=== PATIENT | male | born 1970 | race Caucasian/White ===

== ENCOUNTER 2023-02-07 08:51 | Inpatient (IN) ==
--- NOTE | 2023-02-07 09:04 | Emergency Department Note ---
Impression & Plan Encephalopathy acute, Elevated liver function tests, Acute urinary retention, Hyponatremia ED Provider Note Name: BENOIT BUNCH Age: 52 Sex: Male Arrives Via: Ambulance Informant: Patient unable to give history, EMS did arrive shortly after EMS to give further history to both me and staff. ED Provider: Vignesh Suazo MD Chief Complaint: Altered mental status Impression: As per impressions above Medical Decision Makin-year-old relatively healthy male arrives with rapidly worsening mental status decline. Patient has been sick for the last 4 to 5 days with possible viral or tickborne illness. Had been seen a few days earlier in ED and started on doxycycline given the mild elevation LFTs symptoms. This morning patient was noted to be obtunded laying on couch with fever and rigors. EMS arrived and in route to ED gave him fluids and Tylenol. On arrival patient is encephalopathic and not really following commands but is protecting airway. Extensive septic work-up initiated. CT of the head was also obtained. With normal CT head and concern for meningitis I reviewed pros cons with who agreed to having LP done. I attempted LP however given patient's encephalopathic status despite giving him some Ativan I was unable to have a successful LP. I discussed this with radiology and plan is likely to have radiology tap him. In the meantime out of abundance of caution he was started on empiric antibiotics along with antiviral's. I discussed case at length with hospitalist and plan for hospitalization. I will note that patient was straight cathed for almost a liter of fluid which is a bit unusual that he is now retaining. Following some fluids, Ativan and after loading Tylenol sent and patient is actually significantly improved mental status. He is answering some questions though does appear a bit with deep. Throughout this though his vital signs have remained stable and he has protecting his airway. Patient also seems to have a low sodium of uncertain etiology. Other work-up including alcohol level is negative. Patient was given IV fluids for presumed sepsis however he does not require 30/kg IV fluid given he is not hypotensive and does not have a lactic acidosis. He was given empiric antibiotics for his sepsis. Repeat evaluations of patient throughout his stay revealed improvement in mental status. No further information available other than review of chart. Triage/Nursing Notes reviewed by Me Differential: Infection, hypoglycemia, electrolyte abnormalities, overdose, toxicologic, cardiac sources, intracerebral event, neurologic, trauma, as well as other pathologies. Vital Signs: reviewed and remarkable for no significant abnormalities Interventions: Normal saline bolus 1 L IV, Rocephin IV, vancomycin IV, acyclovir IV, ampicillin IV, Ativan IV Labs:ED labs Reviewed by me and remarkable for elevated LFTs and hyponatremia Imaging:CT of the head without contrast as per my informal interpretation reveals no intracranial mass, bleed, edema. Confirmed by radiologist. 1 view chest x-ray as per my interpretation. Decreased respiratory effort but no evidence of infiltrate or effusion. EKG:As per my interpretation. Indication sepsis. Normal sinus rhythm at 67 with a QTc of 433. When compared to EKG of February 03, 2023 there is no significant change. No ectopy nor ischemia appreciated. Cardiac/Tele Monitoring: Cardiac Monitoring: An Order was placed for continuous cardiac monitoring. The monitor shows a rate of 70 with a normal sinus rhythm. Consults:Reviewed with radiologist and they will be able to obtain LP later today if necessary. Reviewed with hospitalist Dr. Rivas who will bring patient in for further management. Plan: Disposition:Hospitalization. Condition: Fair History of Present Illness: 52-year-old gentleman without significant past medical history arrives for evaluation of altered mental status. Patient was recently diagnosed with possible tickborne illness and has been on doxycycline for the last 4 to 5 days. Rapid worsening mental status. This morning febrile and not responding other than looking around the room. Patient given 1 g Tylenol by EMS in route. Past Medical History:No significant past medical history in chart Home Medications:Sodium bicarb reported in chart review unknown what he is taking other than the Doxy he was started on a few days ago Allergies:No reported drug allergy Vitals:Blood Pressure: 130/82, Pulse 68, RR 18, T 37.4C, O2 95% on RA Physical Exam: GENERAL: Patient is altered/confused/encephalopathic appearing and in no acute distress. warm to touch HEAD: AT/NC NECK: When moving patient's head around he does not exhibit any obvious nuchal rigidity or discomfort. RESPIRATORY: No dyspnea. Clear to auscultation and equal bilaterally. CARDIOVASCULAR: Regular rate and rhythm.No murmur appreciated. GASTROINTESTINAL: Abdomen soft, non-tender, no peritonitis. EXTREMITIES: Normal motion all extremities, no cyanosis, no edema. NEUROLOGIC: Patient is encephalopathic unresponsive to verbal commands but looking around room confused. Weakly moves arms and legs to stimuli. SKIN: No rash, no jaundice, no diaphoresis. ED Course: Times/Reassessments: Many repeat evaluations of patient throughout his stay. He did seem to have improvement in his mental status throughout the morning as he was rehydrated as well as following a small dose of Ativan seem to help. Ativan initially been given to see if it would make it easier to get LP done after discussing with Procedures: Lumbar Puncture Indication: Meningitis. Verbal consent was obtained from the as patient is encephalopathic after the risks and benefits were explained, including but not limited to headache, bleeding/clotting, scarring, infection, pain, and bone/joint/nerve damage. At this time, the risks of the procedure are less than the risks of NOT performing the procedure. A time out was taken and the correct patient and site identified. The patient was placed in the upright leaning forward position and the back was prepped with betadine and draped in the standard fashion. The L3 intervertebral space was identified, anesthetized locally with 1% lidocaine without epinephrine, and the spinal needle was inserted through the skin with the bevel parallel to the dural fibers. The needle was carefully advanced with 3 attempts in different locations and unable to obtain CSF fluid. Complication primarily being patient unable to fully follow directions and would periodically move making LP significantly difficult. The stylet was replaced and the needle was removed. A bandaid was placed and the patient was placed in the supine position. The patient tolerated the procedure well and there were no complications beyond inability to obtain lumbar fluid Critical Care: I have personally spent 35 minutes of critical care time in the direct management of this patient. Acute meningitis with evidence of sepsis and altered mental status requiring rapid management and evaluation/treatment. This was a life/limb threatening event. This 35 minutes is in excess of all separately billable procedures. Vignesh Suazo MD Past Med/Surg History Medical History (Updated 02/08/23 @ 11:28 by Vignesh Suazo MD) Fatty liver Hearing loss in left ear History of manic depressive disorder Surgical History History of placement of ear tubes History of eye surgery History of colonoscopy Family History Father Diabetes Brother Diabetes Sister No problems noted. 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 Beliefs That Will Affect Care: None marital status: Current Living Situation: Spouse current occupational status: employed Other Information That Helps Us Care for You: No Feels Safe at Home: Yes Safety Concerns: Feels Safe At This Time Assistive Devices: None Allergies Allergies Allergy/AdvReac Type Severity Reaction Status Date / Time No Known Allergies Allergy NKA Verified 02/07/23 10:45 Home Meds Home Medications Medication Instructions Recorded Confirmed cholecalciferol (vitamin D3) 10 0 mcg PO DAILY ##0 10/26/19 02/07/23 mcg (400 unit) capsule (Vitamin D3) cyanocobalamin (vitamin B-12) 0 tab PO DAILY ##0 10/26/19 02/07/23 ginkgo biloba 0 mg PO DAILY ##0 10/26/19 02/07/23 milk thistle 140 mg capsule 0 mg PO DAILY ##0 10/26/19 02/07/23 multivitamin 1 tab PO DAILY 10/26/19 02/07/23 pyridoxine (vitamin B6) 25 mg 0 mg PO DAILY ##0 10/26/19 02/07/23 tablet (Vitamin B-6) vitamin E 268 mg (400 unit) capsule 0 unit PO DAILY 10/26/19 02/07/23 Previous Rx's Medication Instructions Recorded doxycycline hyclate 100 mg tablet 100 mg PO BID 14 days #28 tabs 02/03/23 sodium bicarbonate 650 mg tablet 650 mg PO BID #14 tabs 02/03/23 Results & Data (ED) Vital Signs Vital Signs - 24 hr 02/07/23 11:21 02/07/23 12:00 02/07/23 12:00 Pulse Rate 85 Pulse Rate [Apical] 85 Respiratory Rate 18 20 Respiratory Effort / Characteristics Non-Labored Spontaneous Respiratory Depth Normal Respiratory Pattern Regular Blood Pressure 157/92 H 120/83 Blood Pressure [Right Arm] 120/83 Blood Pressure Mean 126 96 Blood Pressure Mean [Right Arm] 95 Blood Pressure Position [Right Arm] Sitting Pulse Oximetry 97 94 Oxygen Delivery Method Room Air 02/07/23 12:30 Pulse Rate 66 Pulse Rate [Apical] Respiratory Rate 24 Respiratory Effort / Characteristics Respiratory Depth Respiratory Pattern Blood Pressure 129/82 Blood Pressure [Right Arm] Blood Pressure Mean 98 Blood Pressure Mean [Right Arm] Blood Pressure Position [Right Arm] Pulse Oximetry 97 Oxygen Delivery Method Laboratory Data 02/08/23 06:29 02/08/23 06:29 Lab Results 02/07/23 02/07/23 02/07/23 Range/Units 09:05 09:05 09:34 WBC 6.84 (4.8-10.8) K/ul RBC 4.37 L (4.70-6.10) M/uL Hgb 13.4 L (14.0-18.0) g/dl Hct 36.9 L (42.0-52.0) % MCV 84.4 (80.0-100.0) fL MCH 30.7 (25.0-34.0) pg MCHC 36.3 H (32.0-36.0) g/dL RDW Std Deviation 37.4 (36.4-46.3) fL RDW Coeff of Linda 12.2 (11.5-14.5) % Plt Count 195 (130-400) K/uL MPV 9.4 (9.4-12.4) fL Immature Gran % (Auto) 0.9 % Neut % (Auto) 84.0 % Lymph % (Auto) 8.9 % Pender % (Auto) 5.8 % Eos % (Auto) 0.1 % Baso % (Auto) 0.3 % Neut # (Auto) 5.74 (1.40-6.50) K/uL Lymph # (Auto) 0.61 L (1.20-3.40) K/uL Pender # (Auto) 0.40 (0.11-0.59) K/uL Eos # (Auto) 0.01 (0.00-0.50) K/uL Baso # (Auto) 0.02 (0.00-0.20) K/uL Immature Gran # (Auto) 0.06 (0.01-0.20) K/uL Peripher Smr Path Cons ESR 28 H (0-20) mm/hr PT 12.3 H (9.0-12.0) Seconds INR 1.1 (0.9-1.1) APTT 27.9 (21.0-31.0) Seconds PTT Ratio 1.0 VBG pH 7.55 H (7.36-7.41) VBG pCO2 22 L (38-50) mmHg VBG pO2 78 mmHg VBG HCO3 19 mmol/L VBG O2 Saturation 97.3 % VBG Base Excess -1.2 mEq/L Sodium 125 L (136-145) mmol/L Potassium 3.6 (3.5-5.1) mmol/L Chloride 96 L (98-107) mmol/L Carbon Dioxide 20 L (21-32) mmol/L Anion Gap 9 (3-11) BUN 16 (6-23) mg/dl Creatinine 0.79 (0.6-1.4) mg/dl Est Cr Clr Drug Dosing 117.1 ml/min Est GFR ( Amer) 118.0 ml/min Est GFR (Non-Af Amer) 101.8 ml/min BUN/Creatinine Ratio 20.3 H (10-20) Glucose 125 H (70-99(Fasting)) mg/dl Osmolality (280-300) mOsm/kg Lactate 1.5 (0.4-2.0) mmol/L Calcium 7.7 L (8.6-10.3) mg/dl Magnesium 2.0 (1.7-2.4) mg/dl Total Bilirubin 1.3 H (0.2-1.0) mg/dl Direct Bilirubin 0.5 H (0-0.2) mg/dl AST 52 H (13-39) U/L ALT 125 H (7-52) U/L Alkaline Phosphatase 120 H (34-104) U/L Ammonia 32.0 (18-72) umol/L Total Creatine Kinase 35 (30-223) U/L Troponin I High Sens 18.9 Cancelled (0-20) pg/ml C-Reactive Protein 7.75 H (0-0.5) mg/dl Total Protein 6.4 (6.0-8.3) gm/dl Albumin 3.4 (3.4-5.0) gm/dl Vitamin B12 877 (180-914) pg/ml Procalcitonin 0.29 (0-0.5) ng/ml Urine Color Urine Appearance (Clear) Urine pH (4.5-7.5) Ur Specific [place] (1.000-1.030) Urine Protein (Negative) Urine Glucose (UA) (Negative) Urine Ketones (Negative) Urine Blood (Negative) Urine Nitrite (Negative) Urine Bilirubin (Negative) Urine Urobilinogen (Negative) Ur Leukocyte Esterase (Negative) Urine Osmolality (500-800) mOsm/kg Ur Random Sodium mmol/L Urine Opiates Screen (Neg) Ur Methadone, Qual (Neg) Urine Barbiturates (Neg) Ur Phencyclidine (PCP) (Neg) U Amphetamin/Meth Scrn (Neg) MDMA (Ecstasy) Screen (Neg) U Benzodiazepines Scrn (Neg) Ur Cocaine Metabolite (Neg) U Marijuana (THC) Screen (Neg) Ethyl Alcohol mg/dL < 10.0 (<10.0) mg/dl Adenovirus (PCR) Not Detected (NotDetected) Anaplasma Smear See Comment Babesia Smear See Comment B. pertussis DNA (PCR) Not Detected (NotDetected) B.parapertussis DNA PCR Not Detected (NotDetected) Lyme Disease IgG Ab Negative (Negative) Lyme Disease IgM Ab Negative (Negative) C. pneumoniae DNA (PCR) Not Detected (NotDetected) Coronavirus OC43 (PCR) Not Detected (NotDetected) Coronavirus HKU1 (PCR) Not Detected (NotDetected) Coronavirus 229E (PCR) Not Detected (NotDetected) SARS-CoV-2 (PCR) Not Detected (NotDetected) Coronavirus NL63 (PCR) Not Detected (NotDetected) Cryptococcus Source Cryptococcal Ag (Latex) HIV (1&2) Ag & Ab Conf (NON-REACTIVE) Human Metapneumovir PCR Not Detected (NotDetected) Influenza Type A (PCR) Not Detected (NotDetected) Influenza Type B (PCR) Not Detected (NotDetected) M. pneumoniae (PCR) Not Detected (NotDetected) Parainfluenza 1 (PCR) Not Detected (NotDetected) Parainfluenza 2 (PCR) Not Detected (NotDetected) Parainfluenza 3 (PCR) Not Detected (NotDetected) Parainfluenza 4 (PCR) Not Detected (NotDetected) RSV (PCR) Not Detected (NotDetected) Entero/Rhino (PCR) Not Detected (NotDetected) 02/07/23 02/07/23 02/07/23 Range/Units 10:09 10:15 12:00 WBC (4.8-10.8) K/ul RBC (4.70-6.10) M/uL Hgb (14.0-18.0) g/dl Hct (42.0-52.0) % MCV (80.0-100.0) fL MCH (25.0-34.0) pg MCHC (32.0-36.0) g/dL RDW Std Deviation (36.4-46.3) fL RDW Coeff of Linda (11.5-14.5) % Plt Count (130-400) K/uL MPV (9.4-12.4) fL Immature Gran % (Auto) % Neut % (Auto) % Lymph % (Auto) % Pender % (Auto) % Eos % (Auto) % Baso % (Auto) % Neut # (Auto) (1.40-6.50) K/uL Lymph # (Auto) (1.20-3.40) K/uL Pender # (Auto) (0.11-0.59) K/uL Eos # (Auto) (0.00-0.50) K/uL Baso # (Auto) (0.00-0.20) K/uL Immature Gran # (Auto) (0.01-0.20) K/uL Peripher Smr Path Cons ESR (0-20) mm/hr PT (9.0-12.0) Seconds INR (0.9-1.1) APTT (21.0-31.0) Seconds PTT Ratio VBG pH (7.36-7.41) VBG pCO2 (38-50) mmHg VBG pO2 mmHg VBG HCO3 mmol/L VBG O2 Saturation % VBG Base Excess mEq/L Sodium (136-145) mmol/L Potassium (3.5-5.1) mmol/L Chloride (98-107) mmol/L Carbon Dioxide (21-32) mmol/L Anion Gap (3-11) BUN (6-23) mg/dl Creatinine (0.6-1.4) mg/dl Est Cr Clr Drug Dosing ml/min Est GFR ( Amer) ml/min Est GFR (Non-Af Amer) ml/min BUN/Creatinine Ratio (10-20) Glucose (70-99(Fasting)) mg/dl Osmolality 270 L (280-300) mOsm/kg Lactate (0.4-2.0) mmol/L Calcium (8.6-10.3) mg/dl Magnesium (1.7-2.4) mg/dl Total Bilirubin (0.2-1.0) mg/dl Direct Bilirubin (0-0.2) mg/dl AST (13-39) U/L ALT (7-52) U/L Alkaline Phosphatase (34-104) U/L Ammonia (18-72) umol/L Total Creatine Kinase (30-223) U/L Troponin I High Sens (0-20) pg/ml C-Reactive Protein (0-0.5) mg/dl Total Protein (6.0-8.3) gm/dl Albumin (3.4-5.0) gm/dl Vitamin B12 (180-914) pg/ml Procalcitonin (0-0.5) ng/ml Urine Color Yellow Urine Appearance Clear (Clear) Urine pH 7.5 (4.5-7.5) Ur Specific [place] 1.017 (1.000-1.030) Urine Protein Negative (Negative) Urine Glucose (UA) Negative (Negative) Urine Ketones 1+ H (Negative) Urine Blood Negative (Negative) Urine Nitrite Negative (Negative) Urine Bilirubin Negative (Negative) Urine Urobilinogen Negative (Negative) Ur Leukocyte Esterase Negative (Negative) Urine Osmolality 549 (500-800) mOsm/kg Ur Random Sodium 110 mmol/L Urine Opiates Screen Neg (Neg) Ur Methadone, Qual Neg (Neg) Urine Barbiturates Neg (Neg) Ur Phencyclidine (PCP) Neg (Neg) U Amphetamin/Meth Scrn Neg (Neg) MDMA (Ecstasy) Screen Neg (Neg) U Benzodiazepines Scrn Neg (Neg) Ur Cocaine Metabolite Neg (Neg) U Marijuana (THC) Screen Neg (Neg) Ethyl Alcohol mg/dL (<10.0) mg/dl Adenovirus (PCR) (NotDetected) Anaplasma Smear Babesia Smear B. pertussis DNA (PCR) (NotDetected) B.parapertussis DNA PCR (NotDetected) Lyme Disease IgG Ab (Negative) Lyme Disease IgM Ab (Negative) C. pneumoniae DNA (PCR) (NotDetected) Coronavirus OC43 (PCR) (NotDetected) Coronavirus HKU1 (PCR) (NotDetected) Coronavirus 229E (PCR) (NotDetected) SARS-CoV-2 (PCR) (NotDetected) Coronavirus NL63 (PCR) (NotDetected) Cryptococcus Source Cancelled Cryptococcal Ag (Latex) Cancelled HIV (1&2) Ag & Ab Conf NON-REACTIVE (NON-REACTIVE) Human Metapneumovir PCR (NotDetected) Influenza Type A (PCR) (NotDetected) Influenza Type B (PCR) (NotDetected) M. pneumoniae (PCR) (NotDetected) Parainfluenza 1 (PCR) (NotDetected) Parainfluenza 2 (PCR) (NotDetected) Parainfluenza 3 (PCR) (NotDetected) Parainfluenza 4 (PCR) (NotDetected) RSV (PCR) (NotDetected) Entero/Rhino (PCR) (NotDetected) Administered Medications Ceftriaxone Sodium 2,000 mg/ (Dextrose) 50 mls @ 100 mls/hr IV Q12H ANTHONY; Protocol Stop: 02/17/23 22:59 Last Infusion: 02/07/23 23:06 Dose: Infused Documented By: Admin: 02/07/23 22:15 Dose: 100 mls/hr Documented By: Acyclovir Sodium 770 mg/ (Dextrose) 265.4 mls @ 250 mls/hr IV Q8H ANTHONY; Protocol Stop: 02/17/23 21:59 Last Infusion: 02/08/23 06:21 Dose: Infused Documented By: Admin: 02/08/23 05:15 Dose: 250 mls/hr Documented By: Infusion: 02/07/23 22:15 Dose: Infused Documented By: Admin: 02/07/23 21:03 Dose: 250 mls/hr Documented By: Ampicillin Sodium 2,000 mg/ (Sodium Chloride) 100 mls @ 200 mls/hr IV Q4H ANTHONY Stop: 02/17/23 16:14 Last Infusion: 02/08/23 10:03 Dose: Infused Documented By: Admin: 02/08/23 09:33 Dose: 200 mls/hr Documented By: Infusion: 02/08/23 05:54 Dose: Infused Documented By: Admin: 02/08/23 05:14 Dose: 200 mls/hr Documented By: Infusion: 02/08/23 00:02 Dose: Infused Documented By: Admin: 02/07/23 23:26 Dose: 200 mls/hr Documented By: Infusion: 02/07/23 21:01 Dose: Infused Documented By: Admin: 02/07/23 20:13 Dose: 200 mls/hr Documented By: Infusion: 02/07/23 17:21 Dose: Infused Documented By: Admin: 02/07/23 16:51 Dose: 200 mls/hr Documented By: MORA Ketorolac Tromethamine (Ketorolac Tromethamine 15 Mg/Ml Vial) 15 mg IV Q6H PRN PRN Reason: Pain or Fever Stop: 02/12/23 23:09 Last Admin: 02/07/23 23:26 Dose: 15 mg Documented By: STANILSAW Discontinued Medications Ceftriaxone Sodium (Ceftriaxone Sodium 2000mg/50ml D5w) 2,000 mg IV NOW STA Stop: 02/07/23 11:20 Last Admin: 02/07/23 11:33 Dose: 2,000 mg Documented By: PAULO Sodium Chloride (Nss) 1,000 mls @ 999 mls/hr IV .Q1H1M ANTHONY Stop: 02/07/23 10:15 Last Infusion: 02/07/23 10:11 Dose: Infused Documented By: Admin: 02/07/23 09:10 Dose: 999 mls/hr Documented By: PAULO Sodium Chloride (Nss) 1,000 mls @ 999 mls/hr IV .Q1H1M ONE Stop: 02/07/23 11:24 Last Infusion: 02/07/23 12:21 Dose: Infused Documented By: Admin: 02/07/23 11:17 Dose: 999 mls/hr Documented By: PAULO Ampicillin Sodium 2,000 mg/ (Sodium Chloride) 100 mls @ 200 mls/hr IV NOW STA Stop: 02/07/23 11:49 Last Infusion: 02/07/23 13:05 Dose: Infused Documented By: Admin: 02/07/23 12:15 Dose: 200 mls/hr Documented By: PAULO Vancomycin HCl 2,250 mg/ (Sodium Chloride) 545 mls @ 200 mls/hr IV NOW STA Stop: 02/07/23 14:03 Last Infusion: 02/07/23 20:16 Dose: Infused Documented By: Admin: 02/07/23 16:51 Dose: 200 mls/hr Documented By: MORA Acyclovir Sodium 700 mg/ (Dextrose) 114 mls @ 100 mls/hr IV NOW STA Stop: 02/07/23 12:29 Last Infusion: 02/07/23 14:51 Dose: Infused Documented By: Admin: 02/07/23 13:42 Dose: 100 mls/hr Documented By: ADAM Parenteral Electrolytes (Plasma-Lyte A Ph 7.4) 1,000 mls @ 999 mls/hr IV .Q1H1M ONE Stop: 02/07/23 14:09 Last Admin: 02/07/23 15:31 Dose: Not Given Documented By: MORA Lorazepam (Lorazepam 2 Mg/1 Ml Vial) 2 mg IV NOW STA Stop: 02/07/23 10:25 Last Admin: 02/07/23 11:17 Dose: 1 mg Documented By: PAULO Discharge Plan Visit Data Chief Complaint: Altered Mental Status Stated Complaint: [facility] ED Provider: Vignesh Suazo Discharge Problem: Encephalopathy acute, Elevated liver function tests, Acute urinary retention, Hyponatremia Patient Disposition: Admitted As Inpatient Discharge Instructions Interventions: ED Discharge Assessment Last Done: 02/07/23 19:43
[2023-02-07] MEDS ORDERED: SODIUM CHLORIDE 0.9% 1,000 ML IV SCH (09:15)
[2023-02-07 09:34] LABS: Basophils # (auto) 0.02 K/uL (0.00-0.20); Basophils % (auto) 0.3 %; Eosinophils # (auto) 0.01 K/uL (0.00-0.50); Eosinophils % (auto) 0.1 %; Hematocrit (blood only) 36.9 % (42.0-52.0); Hemoglobin 13.4 g/dl (14.0-18.0); Immature Granulocytes # (auto) 0.06 K/uL (0.01-0.20); Immature Granulocytes % (auto) 0.9 %; Lymphocytes # (auto) 0.61 K/uL (1.20-3.40); Lymphocytes % (auto) 8.9 %; Mean Corpuscular Hemoglobin 30.7 pg (25.0-34.0); Mean Corpuscular Hgb Conc 36.3 g/dL (32.0-36.0); Mean Corpuscular Volume 84.4 fL (80.0-100.0); Mean Platelet Volume 9.4 fL (9.4-12.4); Monocytes % (auto) 5.8 %; Neutrophils # (auto) 5.74 K/uL (1.40-6.50); Platelet Count 195 K/uL (130-400); RDW Coefficient of Variation 12.2 % (11.5-14.5); RDW Standard Deviation 37.4 fL (36.4-46.3); Red Blood Count 4.37 M/uL (4.70-6.10); White Blood Count 6.84 K/ul (4.8-10.8)
[2023-02-07 09:44] LABS: Base Excess VBG -1.2 mEq/L; HCO3 VBG 19 mmol/L; Oxygen Saturation VBG 97.3 %; PCO2 VBG 22 mmHg (38-50); PO2 VBG 78 mmHg; pH VBG 7.55 (7.36-7.41)
--- NOTE | 2023-02-07 09:45 | CT Scan Report ---
CT SCAN OF THE BRAIN WITHOUT IV CONTRAST CLINICAL HISTORY: Change in mental status. COMPARISON STUDY: No priors. TECHNIQUE: Unenhanced axial CT scan of the brain is performed from the vertex to the skull base. A d ose lowering technique was utilized adhering to the principles of ALARA. CT DOSE: 625.8 mGy.cm FINDINGS: Brain parenchyma: The brain parenchyma is normal in appearance. There is no hemorrhage, mass effect, or evidence of acute territorial ischemia by CT criteria. Abdalla-white matter differentiation is preser reny. No extra-axial fluid collection is seen. Ventricles, sulci, cisterns: Normal in configuration. Intracranial vasculature: The visualized intracranial vasculature at the skull base is normal in appe arance. Calvarium: Unremarkable. Sinuses and mastoids: The visualized paranasal sinuses are clear. The mastoid air cells are well pneu matized. Orbits: The bony orbits are grossly intact. IMPRESSION: No acute intracranial abnormality. ACT 112: Negative or not required by law. Electronically signed by: Martín Alvarez M.D. 02/07/2023 9:43 AM
[2023-02-07 09:47] LABS: Albumin Level 3.4 gm/dl (3.4-5.0); BUN Creatinine Ratio 20.3 (10-20); Bilirubin Direct 0.5 mg/dl (0-0.2); Bilirubin,Total 1.3 mg/dl (0.2-1.0); Calcium 7.7 mg/dl (8.6-10.3); Creatinine Clr Calc Pharmacy 117.1 ml/min; Est GFR (Non-African American) 101.8 ml/min; Potassium 3.6 mmol/L (3.5-5.1); Total Protein 6.4 gm/dl (6.0-8.3)
[2023-02-07 09:53] LABS: Troponin I High Sensitivity 18.9 pg/ml (0-20)
[2023-02-07 09:57] LABS: INR 1.1 (0.9-1.1); Partial Thromboplastin Time 27.9 Seconds (21.0-31.0); Prothrombin Time 12.3 Seconds (9.0-12.0)
--- NOTE | 2023-02-07 09:57 | XRay Report ---
XR chest 1V portable HISTORY: Sepsis COMPARISON: Chest 02/03/2023. FINDINGS: No pneumothorax. No pleural effusions. There are low lung volumes. The heart remains mildly enlarged. No new focal lung consolidations to suggest pneumonia. Mild diffuse interstitial thickenin g. This has progressed and favors mild congestive change. IMPRESSION: 1. Cardiomegaly with mild congestive change. 2. No focal lung consolidations. ACT 112: Negative or not required by law. Electronically signed by: Jameson Jean M.D. 02/07/2023 9:55 AM
[2023-02-07 10:18] LABS: Appearance Urine Clear (Clear); Bilirubin Urine Negative (Negative); Blood Urine Negative (Negative); Color Urine Yellow; Glucose Urine UA Negative (Negative); Ketones Urine 1+ (Negative); Leukocyte Esterase Urine Negative (Negative); Nitrite Urine Negative (Negative); Protein Urine Negative (Negative); Specific Gravity Urine 1.017 (1.000-1.030); Urobilinogen Urine Negative (Negative); pH Urine 7.5 (4.5-7.5)
[2023-02-07 10:21] LABS: C Reactive Protein 7.75 mg/dl (0-0.5)
[2023-02-07] MEDS ORDERED: SODIUM CHLORIDE 0.9% 1,000 ML IV ONE (10:24)
[2023-02-07] MEDS ORDERED: LORazepam 2 MG/1 ML VIAL IV STA (10:24)
[2023-02-07 10:39] LABS: Adenovirus PCR Not Detected (NotDetected); Bordetella parapertussis PCR Not Detected (NotDetected); Bordetella pertussis PCR Not Detected (NotDetected); Chlamydia pneumoniae PCR Not Detected (NotDetected); Coronavirus 229E PCR Not Detected (NotDetected); Coronavirus CoV-2 (COVID19)PCR Not Detected (NotDetected); Coronavirus HKU1 PCR Not Detected (NotDetected); Coronavirus NL63 PCR Not Detected (NotDetected); Coronavirus OC43PCR Not Detected (NotDetected); Human Metapneumovirus PCR Not Detected (NotDetected); Influenza A PCR Not Detected (NotDetected); Influenza B PCR Not Detected (NotDetected); Lyme Ab IgG w/WB Rflx Negative (Negative); Lyme Ab IgM w/WB Rflx Negative (Negative); Mycoplasma pneumoniae PCR Not Detected (NotDetected); Parainfluenza Virus 1 PCR Not Detected (NotDetected); Parainfluenza Virus 2 PCR Not Detected (NotDetected); Parainfluenza Virus 3 PCR Not Detected (NotDetected); Parainfluenza Virus 4 PCR Not Detected (NotDetected); Respiratory Syncytial VirusPCR Not Detected (NotDetected); Rhinovirus/Enterovirus PCR Not Detected (NotDetected)
[2023-02-07] MEDS ORDERED: cefTRIAXone SODIUM 2000MG/50ML D5W IV STA (11:19)
[2023-02-07] MEDS ORDERED: AMPICILLIN 2,000 MG in SODIUM CHLOR 0.9% MINI-B 100 ML IV STA (11:20)
[2023-02-07] MEDS ORDERED: VANCOMYCIN HCL 2,250 MG in SODIUM CHLORIDE 0.9% 500 ML IV STA (11:20)
[2023-02-07] MEDS ORDERED: ACYCLOVIR SOD 700 MG in DEXTROSE 5% 100 ML IV STA (11:21)
--- NOTE | 2023-02-07 11:52 | History & Physical Report ---
Date of Service February 07, 2023 Assessment & Plan (1) AMS (altered mental status): Plan: -Admit to the PCU on tele -Currently stable with improving mentation after initial treatment in the ED -At this time the etiology of the patient's alteration in mental status is unknown but the differential includes but is not limited to FINANCE ADMINISTRATOR infection, stroke, bacterial infection, viral infection, tick borne illness, symptomatic hyponatremia, Wernicke's Encephalopathy -Patient initially presented to the ED on 02/03 with 3 days of sinus congestion, head pain/pressure, fevers, and myalgias. His workup was not significantly suggestive of infectious etiology at that time despite his symptoms; he was also noted to have a sodium of 126. Was discharged on empiric PO Doxycycline and BID PO Sodium Bicarb tabs but his condition continued to deteriorate. -The patient has no focal neuro defects to suggest CVA at this time, CT of the head/brain wo con today was negative for acute findings -He is without signs of infection on Chest xray and UA, WBC is WNL, procal is negative, his lymphopenia could be related to viral illness but tick borne panel and full respiratory biofire have been negative at this time -Patient was reportedly febrile at 103F this am for EMS, has yet to be febrile since arrival, was given 1gm IV tylenol in route by EMS -Patient was previously incarcerated and has a history of huffing paint and marijuana abuse, denies history of IV drug use -Was previously a heavy drinker but quit approximately 1.5 years ago, low suspicion for Wernicke's encephalopathy at this time with his quick improvement with initial treatment in the ED, will obtain B1, B12, and folic acid levels -Tox screen and alcohol level are negative -S/P Ceftriaxone, Ampicillin, Vancomycin, and Acyclovir for possible meningitis in the ED, will continue this regimen for now -ED attempted LP at bedside multiple times without success, radiology will attempt IR LR shortly, all CSF studies have been ordered -Follow blood cultures, tick borne workup, acute hepatitis panel, HIV panel, peripheral smear, LP results, and vitamin levels -S/P 2L NSS in the ED, patient appears dry on exam, will give 1L Normosol on admission, continue to monitor volume status -Hold chemical DVT PPX for now with planned IR LP, BL BONIFACIO's for now -NPO until after IR LP is complete then bedside speech swallow eval prior to ordering diet -AM CBC, CMP, Mag, PT/INR (2) Hyponatremia: Plan: -Sodium at 125 today, down from 126 on 02/03 -His workup today shows a serum osmolality of 270, urine osmolality of 549, with urine sodium of 110 -The patient appears euvolemic to slightly dry on exam at this time - had reported that the patient has had poor oral intake of food over the past week but was drinking water consistently -At this time the patient's labs and volume status are most consistent with SIADH -TSH obtained on 02/03 was WNL, will obtain random cortisol now -S/P 2L NSS in the ED, will repeat a sodium level at 3pm to monitor for response -Will keep strict NPO for now -Monitor intake/output q6h for now, if needed can place ocampo for close monitoring -Avoid free water for now (3) Transaminitis: Plan: -LFT's have been increasing since 02/03 -Patient denies abdominal discomfort and has benign abd exam -Denies recent alcohol use, AST/ALT ration does not indicate recent alcohol use -Has been alternating tylenol and ibuprofen for recent symptoms at home -Was perviously incarcerated so higher risk for possible hepatitis -Will obtain Acetaminophen level, acute hepatitis level, follow infectious workup -Will obtain liver US after IR LP is obtained -Avoid acetaminophen for now (4) Hyperglycemia: Plan: -Glucose of 125 today, was 190 on 02/03 -No previous hx of DM -Will obtain am A1c for further evaluation -Will monitor BSG ACHS if he passes dysphagia screen later today (5) HTN (hypertension): Plan: -Stable -Not currently on antihypertensives -Continue to monitor (6) Hyperlipidemia: Plan: -Not currently on a statin Plan The patient was discussed with Dr. Rivas at the time of the admission History of Present Illness Chief Complaint: AMS Primary Care Provider: Abhijit Alexis DO Pro is a 52 year old male with a PMH significant for alcohol abuse, HTN, and hyperlipidemia who presented to the [facility] ED on 02/07 with his for AMS and fever of 103F at home. Per chart review, the patient presented to the [facility] ED on 02/03 with complaints of headache, congestion, fevers, and body aches. Labs from that visit were significant for a lymphopenia of 0.54, glucose of 190, corrected sodium of 126, chloride of 92, phos of 2.1, total bili of 1.1 with AST of 69 and ALT of 118. UA and full respiratory were unremarkable. Lyme IgG and IgM Ab were negative and anaplasmosis/Babesia have been negative to this point. The patient was given IV fluids, doxycycline, tylenol, and toradol with reported improvement in all symptoms. Because of this the patient and his were comfortable with discharge home on empiric Doxycycline and sodium bicarbonate tabs. EMS reported that the patient was noted to be febrile on arrival at 103F today, he was given 1gm IV Tylenol by EMS in route. On arrival to the ED he was noted to be stable. Labs Labs were significant for WBC WNL, stable Hgb and platelets, lymphocyte count of 0.61, ESR of 28, VBG pH of 7.55 with pCO2 22 with pO2 of 78, sodium of 125, biacarb of 20, chloride of 96, calcium of 7.7 with albumin WNL, total bili of 1.3, direct bili of 0.5, AST of 52, ALT of 125, alk phos of 120, CRP of 7.75, negative UA, tox screen, and alcohol level, and negative full respiratory biofire. CT of the head was negative for acute findings. Chest xray was read as "1. Cardiomegaly with mild congestive change. 2. No focal lung consolidations.". The patient was given 2L NSS, 2gm IV Ativan, and a dose of 2gm Ceftriaxone, 2gm Ampicillin, a dose of Vancomycin, and a dose of Acyclovir with improvement in symptoms but without resolution. At the time of the exam the patient was lying in bed in no acute distress with his and sister sitting bedside, history was obtained from all. The patient's confirms that the patient was taking the PO doxycycline and Sodium bicarbonate tabs as prescribed on ED discharge. Unfortunately he continued to decline clinically and cognitively. He was complaining of headache/head pressure, photophobia, myalgias, BL knee pain, scrotal pain, and ambulatory dysfunction due to pain. His states that he has had very little to eat since last ED evaluation but has been drinking lots of water to try and stay hydrated. She confirms that he is NOT on hydrochlorothiazide at home. He has a previous history of heavy alcohol use (5+ beers daily), but his family confirms that he stopped drinking approximately 1.5 years ago. He does not currently use recreational drugs but did use marijuana and huffed paint 20+ years ago. His states that the patient was jailed multiple times, approximately 20 years ago, for multiple DUI's. His and the patient deny the patient having a hx of IV drug use in the past and a previous hx of hepatitis. The patient is much more alert and oriented than arrival at the time of my exam. He states that he is feeling much improved compared to ED arrival but is still having weakness, mild headache, myalgias, and BL knee pain. He denies current headache, photophobia, changes in vision, hearing, taste, smell, neck pain/stiffness, back pain, paresthesias, auditory, tactile, and visual hallucinations, unilateral weakness, chest pain, SOB, cough, hemoptysis, abd pain, nausea, vomiting, diarrhea, dysuria, hematuria, melena, bright blood in stool, LE swelling, rashes, recent insect bites/stings, and recent trauma. He is a full code and wishes for his to make medical decisions for him if he cannot make them himself. Discussed with the patient and his the need to obtain LP with IR as attempts by the ED were unsuccessful, the patient and his are in agreement with proceeding. The patient also gave consent for HIV testing as part of his infectious workup. Please refer to Dr. Rivas's attestation for any changes to the treatment plan Allergies Allergy/AdvReac Type Severity Reaction Status Date / Time No Known Allergies Allergy NKA Verified 02/07/23 10:45 Home Medications Medication Instructions Recorded Confirmed Type cholecalciferol (vitamin D3) 10 0 mcg PO DAILY ##0 10/26/19 02/07/23 History mcg (400 unit) capsule (Vitamin D3) cyanocobalamin (vitamin B-12) 0 tab PO DAILY ##0 10/26/19 02/07/23 History ginkgo biloba 0 mg PO DAILY ##0 10/26/19 02/07/23 History milk thistle 140 mg capsule 0 mg PO DAILY ##0 10/26/19 02/07/23 History multivitamin 1 tab PO DAILY 10/26/19 02/07/23 History pyridoxine (vitamin B6) 25 mg 0 mg PO DAILY ##0 10/26/19 02/07/23 History tablet (Vitamin B-6) vitamin E 268 mg (400 unit) capsule 0 unit PO DAILY 10/26/19 02/07/23 History doxycycline hyclate 100 mg tablet 100 mg PO BID 14 days #28 tabs 02/03/23 02/07/23 Rx sodium bicarbonate 650 mg tablet 650 mg PO BID #14 tabs 02/03/23 02/07/23 Rx Past Med/Surg History Medical History (Updated 02/08/23 @ 14:45 by Nicole Romero MD) Fatty liver Hearing loss in left ear History of manic depressive disorder Surgical History History of placement of ear tubes History of eye surgery History of colonoscopy Family History Father Diabetes Brother Diabetes Sister No problems noted. Other No family history of adverse response to anesthesia Social History Smoking Status: Never smoker Tobacco Type: Smokeless Tobacco (Dip or Chew) Second Hand Exposure: No; Do You Dip or Chew Tobacco: Yes; Hx Alcohol Use: No Hx Substance Use: No Preferred Language: Kiswahili Communication Ability: Effective Processing Specialist Required: No Beliefs That Will Affect Care: None marital status: Current Living Situation: Spouse current occupational status: employed Other Information That Helps Us Care for You: No Feels Safe at Home: Yes Safety Concerns: Feels Safe At This Time Assistive Devices: None Physical Exam Physical Exam: Physical Exam: General: In no acute distress, stated age, ill but non-toxic appearing HEENT: Normocephalic, atraumatic, no scleral icterus, pupils around round, symmetrical, and reactive to light, dry mucus membranes, trachea midline, no thyromegaly Chest/Pulm: No respiratory distress, symmetrical chest expansion, clear breath sounds throughout Cardiac: RRR, no murmurs noted Abdomen: Negative for ascites and bruising, normoactive bowel sounds, soft, non-tender to palpation throughout Musculoskeletal: Symmetrical and without signs of acute trauma, upper and lower extremities with full ROM, no atrophy, spasticity, or flaccidity, patient without neck pain/stiffness, able to flex chin to chest without difficulty, negative tenderness to palpation over the cervical spine, thoracic/lumbar spine, previous LP puncture site is currently bandaged in the lower lumbar spine and without signs of drainage Extremities: Radial, dorsalis pedis, and posterior tibial pulses are intact and symmetrical, no edema noted in the BL LE's Skin: Warm, dry, no rashes, lesions, or scars noted Neuro: Alert and oriented to person, place, month, year,no focal defects, CN II-XII tested and intact, negative cerebellar and pronator drift BL, no tremors noted Psych: No acute distress, fatigued but calm and cooperative during the exam Results & Data Results & Data Vital Signs (Past 12 Hours) Vital Signs Temp Pulse Pulse Resp BP BP Pulse Ox 02/07/23 10:56 60 16 157/92 H 94 02/07/23 10:15 133/80 02/07/23 10:15 67 23 97 02/07/23 10:00 74 18 98 02/07/23 10:00 133/92 02/07/23 09:57 90 02/07/23 09:56 68 17 98 02/07/23 09:56 135/83 02/07/23 09:45 62 18 91 02/07/23 09:30 70 18 97 02/07/23 09:24 95 02/07/23 09:16 68 21 02/07/23 09:16 118/65 02/07/23 09:15 77 18 02/07/23 09:08 68 02/07/23 09:06 67 16 02/07/23 09:05 37.4 C 66 18 130/82 96 02/07/23 09:01 95 O2 Del Method 02/07/23 10:56 Room Air 02/07/23 10:15 02/07/23 10:15 02/07/23 10:00 02/07/23 10:00 02/07/23 09:57 Room Air 02/07/23 09:56 02/07/23 09:56 02/07/23 09:45 02/07/23 09:30 02/07/23 09:24 Room Air 02/07/23 09:16 02/07/23 09:16 02/07/23 09:15 02/07/23 09:08 02/07/23 09:06 02/07/23 09:05 Room Air 02/07/23 09:01 Room Air Laboratory Results Abnormal lab results 02/07/23 02/07/23 02/07/23 Range/Units 09:05 09:34 10:09 RBC 4.37 L (4.70-6.10) M/uL Hgb 13.4 L (14.0-18.0) g/dl Hct 36.9 L (42.0-52.0) % MCHC 36.3 H (32.0-36.0) g/dL Lymph # (Auto) 0.61 L (1.20-3.40) K/uL ESR 28 H (0-20) mm/hr PT 12.3 H (9.0-12.0) Seconds VBG pH 7.55 H (7.36-7.41) VBG pCO2 22 L (38-50) mmHg Sodium 125 L (136-145) mmol/L Chloride 96 L (98-107) mmol/L Carbon Dioxide 20 L (21-32) mmol/L BUN/Creatinine Ratio 20.3 H (10-20) Glucose 125 H (70-99(Fasting)) mg/dl Calcium 7.7 L (8.6-10.3) mg/dl Total Bilirubin 1.3 H (0.2-1.0) mg/dl Direct Bilirubin 0.5 H (0-0.2) mg/dl AST 52 H (13-39) U/L ALT 125 H (7-52) U/L Alkaline Phosphatase 120 H (34-104) U/L C-Reactive Protein 7.75 H (0-0.5) mg/dl Urine Ketones 1+ H (Negative) Diagnostic Findings Chest X-Ray 02/07/23 09:01 XR chest 1V portable HISTORY: Sepsis COMPARISON: Chest 02/03/2023. FINDINGS: No pneumothorax. No pleural effusions. There are low lung volumes. The heart remains mildly enlarged. No new focal lung consolidations to suggest pneumonia. Mild diffuse interstitial thickening. This has progressed and favors mild congestive change. IMPRESSION: 1. Cardiomegaly with mild congestive change. 2. No focal lung consolidations. ACT 112: Negative or not required by law. Electronically signed by: Jameson Jean M.D. 02/07/2023 9:[address] 02/07/23 09:02 CT SCAN OF THE BRAIN WITHOUT IV CONTRAST CLINICAL HISTORY: Change in mental status. COMPARISON STUDY: No priors. TECHNIQUE: Unenhanced axial CT scan of the brain is performed from the vertex to the skull base. A dose lowering technique was utilized adhering to the principles of ALARA. CT DOSE: 625.8 mGy.cm FINDINGS: Brain parenchyma: The brain parenchyma is normal in appearance. There is no hemorrhage, mass effect, or evidence of acute territorial ischemia by CT criteria. Abdalla-white matter differentiation is preserved. No extra-axial fluid collection is seen. Ventricles, sulci, cisterns: Normal in configuration. Intracranial vasculature: The visualized intracranial vasculature at the skull base is normal in appearance. Calvarium: Unremarkable. Sinuses and mastoids: The visualized paranasal sinuses are clear. The mastoid air cells are well pneumatized. Orbits: The bony orbits are grossly intact. IMPRESSION: No acute intracranial abnormality. ACT 112: Negative or not required by law. Electronically signed by: Martín Alvarez M.D. 02/07/2023 9:43 AM ECG Additional Comments: Normal sinus rhythm Possible Anterior infarct , age undetermined Abnormal ECG When compared with ECG of 03-FEB-2023 12:24, Nonspecific T wave abnormality now evident in Anterior leads Code Status & VTE Plan Code Status Full code VTE Prophylaxis Plan VTE Prophylaxis will be ordered: Yes Supervising Physician Co-Signing Physician Notes I personally saw and examined the patient. I verified all thomson points and agree with Mike Ramirez PA-C with the following exceptions and/or additions: 52 year old male presents to the ER with bilateral headache and altered mental status. Altered mental state appears to have improved throughout the day. Having profuse sweating and flushing usually worse around 4-5pm time of day. Doxycycline given in ER on 02/03 has not appeared to make any difference. O/E A&Ox3, HS RRR, no murmurs, Chest CTAB, Abdo SNT, no pedal edema. No neck pain/stiffness. No joint effusions. A/P Altered mental status, rigors, headache, generalized weakness - concern for meningitis however CSF relatively unremarkable but not negative ?aseptic meningitis. Elevated protein and WBC 9. Not consistent with bacterial meningitis but given lack of alternative etiology will continue meningitis treatment pending neurology evaluation tomorrow. Potential autonomic dysfunction and weakness on standing possible fits GBS although he has good reflexes going agai nst this diagnosis and suggestive of a central process. His improvement of his altered mental state is reassuring throughout the day and may have just been from lack of sleep the day before. No source of infection found outside possible encephalitis/meningitis. Hyponatremia - prior urine sodium 20, however today appears to be 100 with urine osm 549 consistent with SIADH. TSH previously normal. Random cortisol appropriate. Free water restrict. Add salt tabs as necessary. PG Care Time/CCT Total # of Minutes Spent Total Time Spent with Patient: Total time spent is greater than 50% in coordination of care (as documented) at patient's floor/unit and/or counseling patient: C[place] [address] INT INP/OBS CARE 3/75MIN Patient Type Established Medical Decision Making High Complexity Diagnoses Altered mental status, unspecified altered mental status type R41.82 Altered mental status type: unspecified Hyponatremia E87.1 Transaminitis R74.01 Hyperglycemia R73.9 HTN (hypertension) I10 Hyperlipidemia E78.5 (1) AMS (altered mental status) Altered mental status type: unspecified Qualified Code(s): R41.82 - Altered mental status, unspecified
[2023-02-07 12:55] LABS: Amphetamines+Metham, Urine Neg (Neg); Barbiturates, Urine Neg (Neg); Benzodiazepine, Urine Neg (Neg); Cocaine, Urine Neg (Neg); MDMA (Ecstacy), Urine Neg (Neg); Methadone, Urine Neg (Neg); Opiate, Urine Neg (Neg); Phencyclidine, Urine Neg (Neg)
[2023-02-07] MEDS ORDERED: PLASMA-LYTE A 1,000 ML IV ONE (13:09)
[2023-02-07 14:51] LABS: Total Protein CSF 139.4 mg/dl (15-45)
[2023-02-07 14:53] LABS: Appearance CSF Clear; CSF Count Tube # 3
[2023-02-07 14:54] LABS: CSF Xanthrochromic No xanthochromia; Color CSF Colorless
--- NOTE | 2023-02-07 15:11 | Fluoroscopy Report ---
FLUOROSCOPICALLY GUIDED LUMBAR PUNCTURE CLINICAL HISTORY: Altered mental status, ED unsuccessful after multiple attempts FLUOROSCOPY TIME: 18 seconds. A single fluoroscopic spot images of the lumbar spine. Ka,r: 4.7 mGy FLUOROSCOPY IMAGES: 1 PROCEDURE: The procedure, risks and benefits were discussed with the patient including the risk of s faheem headache, bleeding and infection. The patient agreed to the procedure and informed written cons ent was obtained. The procedure was performed by Dr. Jean following a timeout. The left L2-L3 in terlaminar space was targeted. Skin overlying the space was prepped and draped in the usual sterile f ashion and local anesthesia was achieved with 1% lidocaine. Under intermittent fluoroscopic guidance, a 20-gauge x 3 1/2 in. Sprotte needle was inserted into the thecal sac. A total of 10 cc of clear, c olorless cerebral spinal fluid was obtained and spread amongst 4 vials. The patient tolerated the pro cedure well. There were no immediate complications. The specimens were sent to the laboratory at the request of the referring physician. IMPRESSION: Successful fluoroscopic guided lumbar puncture with removal of 10 cc of clear, colorless cerebral spinal fluid. No immediate complications. ACT 112: Negative or not required by law. Electronically signed by: Jameson Jean M.D. 02/07/2023 3:09 PM
[2023-02-07 15:55] LABS: Cryptococcus neoformans/ga PCR Not Detected (NotDetected); Cytomegalovirus PCR Not Detected (NotDetected); Enterovirus PCR Not Detected (NotDetected); Escherichia coli K1 PCR Not Detected (NotDetected); Haemophilius influenzae PCR Not Detected (NotDetected); Herpes Simplex Virus 1 PCR Not Detected (NotDetected); Herpes Simplex Virus 2 PCR Not Detected (NotDetected); Human Herpes Virus 6 PCR Not Detected (NotDetected); Human Parechovirus PCR Not Detected (NotDetected); Listeria monocytogenes PCR Not Detected (NotDetected); Neisseria meningitidis PCR Not Detected (NotDetected); Streptococcus agalactiae PCR Not Detected (NotDetected); Streptococcus pneumoniae PCR Not Detected (NotDetected); Varicella Zoster Virus PCR Not Detected (NotDetected)
[2023-02-07] MEDS ORDERED: AMPICILLIN SOD/SULBACTAM SOD 3 GM VIAL IV SCH (16:00)
--- NOTE | 2023-02-07 16:37 | Electrocardiogram Report ---
Test Reason : Blood Pressure : / mmHG Vent. Rate : 068 BPM Atrial Rate : 068 BPM P-R Int : 152 ms QRS Dur : 094 ms QT Int : 408 ms P-R-T Axes : 036 011 003 degrees QTc Int : 433 ms Normal sinus rhythm Poor R wave progression, consider anterior TX vs. lead placement vs. LVH Abnormal ECG When compared with ECG of 03-FEB-2023 12:24, Nonspecific T wave abnormality now evident in Anterior leads Confirmed by Epifanio Smart ([id number]) on 02/07/2023 4:37:05 PM Referred By: Confirmed By:Wade Smart
[2023-02-07] MEDS: AMPICILLIN 2,000 MG in SODIUM CHLOR 0.9% MINI-B 100 ML IV SCH ×3 (16:51→23:26)
--- NOTE | 2023-02-07 17:58 | Ultrasound Report ---
ABDOMINAL ULTRASOUND, RIGHT UPPER QUADRANT HISTORY: Elevated liver enzymes.. COMPARISON: Abdomen and pelvis CT 08/12/2009. FINDINGS: Pancreas: The pancreatic head and tail are obscured by overlying bowel gas. The remaining portions of the pancreas are within normal limits. Liver: The liver is echogenic consistent with fatty change. 17 cm in length. Gallbladder: No gallbladder wall thickening. No gallstones. CBD: 4 mm. Right kidney: No hydronephrosis. IMPRESSION: 1. Hepatic steatosis. 2. Normal gallbladder. No gallstones. ACT 112: Negative or not required by law. Electronically signed by: Jameson Jean M.D. 02/07/2023 5:56 PM
[2023-02-07] MEDS: ACYCLOVIR SOD 770 MG in DEXTROSE 5% 250 ML IV SCH (21:03)
[2023-02-07] MEDS: cefTRIAXone SODIUM 2,000 MG in DEXTROSE 5 % MINI-B 50 ML IV SCH (22:15)
[2023-02-07] MEDS: KETOROLAC TROMETHAMINE 15 MG/ML VIAL IV PRN (23:26)
[2023-02-08] MEDS: AMPICILLIN 2,000 MG in SODIUM CHLOR 0.9% MINI-B 100 ML IV SCH ×6 (05:14→23:25)
[2023-02-08] MEDS: ACYCLOVIR SOD 770 MG in DEXTROSE 5% 250 ML IV SCH ×2 (05:15→18:41)
[2023-02-08 06:56] LABS: Basophils # (auto) 0.04 K/uL (0.00-0.20); Basophils % (auto) 0.7 %; Eosinophils # (auto) 0.03 K/uL (0.00-0.50); Eosinophils % (auto) 0.5 %; Hematocrit (blood only) 35.7 % (42.0-52.0); Immature Granulocytes # (auto) 0.07 K/uL (0.01-0.20); Immature Granulocytes % (auto) 1.2 %; Lymphocytes # (auto) 0.97 K/uL (1.20-3.40); Mean Corpuscular Hemoglobin 30.6 pg (25.0-34.0); Mean Corpuscular Hgb Conc 36.4 g/dL (32.0-36.0); Mean Platelet Volume 8.9 fL (9.4-12.4); Monocytes # (auto) 0.59 K/uL (0.11-0.59); Monocytes % (auto) 10.4 %; Neutrophils # (auto) 3.99 K/uL (1.40-6.50); Neutrophils % (auto) 70.2 %; Platelet Count 232 K/uL (130-400); RDW Coefficient of Variation 12.6 % (11.5-14.5); RDW Standard Deviation 38.3 fL (36.4-46.3); Red Blood Count 4.25 M/uL (4.70-6.10); White Blood Count 5.69 K/ul (4.8-10.8)
[2023-02-08 07:16] LABS: INR 1.1 (0.9-1.1); Prothrombin Time 12.4 Seconds (9.0-12.0)
[2023-02-08 07:23] LABS: Albumin Globulin Ratio 1.1 (0.9-2); Albumin Level 3.3 gm/dl (3.4-5.0); BUN Creatinine Ratio 12.6 (10-20); Bilirubin,Total 0.9 mg/dl (0.2-1.0); Calcium 7.9 mg/dl (8.6-10.3); Creatinine Clr Calc Pharmacy 91.2 ml/min; Est GFR (African American) 104.8 ml/min; Est GFR (Non-African American) 90.4 ml/min; Globulin 3.1 gm/dl (2.5-4.0); Magnesium 2.2 mg/dl (1.7-2.4); Potassium 3.4 mmol/L (3.5-5.1); Total Protein 6.4 gm/dl (6.0-8.3)
[2023-02-08 09:05] LABS: Estimated Average Glucose 143 mg/dl; Hemoglobin A1C 6.6 % (4.5-5.6)
--- NOTE | 2023-02-08 09:50 | Neurology Consultation ---
Date of Consultation February 08, 2023 Assessment & Plan (1) AMS (altered mental status): (2) Aseptic meningitis: Plan 52-year-old male with probable mild aseptic meningitis, presenting with altered mental status in the context of fever, body aches and pains, beginning subacutel y 3 to 4 days ago. His altered mental status is resolved after initial treatment with broad-spectrum antimicrobial coverage. He has an intact neurological examination this morning. He does have a history of remote heavy alcohol use although does not look like delirium tremens. Continue with current antimicrobial coverage as ordered including ceftriaxone, acyclovir, and ampicillin. Follow-up with ID consultation recommendations when available. Would also recommend obtaining a gadolinium-enhanced brain MRI. Does not require an EEG at this time. Continue current supportive medical care regarding his mild hyponatremia, transaminitis. I will advise further if necessary pending completion of the brain MRI. History of Present Illness Reason for Consultation: Altered mental status, fever, equivocal lumbar puncture Requesting Physician: Ashley Attending Physician: Nicole Romero MD History of Present Illness The patient is a 52-year-old male who had initially presented to the emergency department on February 03, 2023 with a complaint of headache, fevers, and generalized body aches and pains beginning over the previous 24 hours. At that time, there was some concern for viral or tickborne infection. He was treated with doxycycline and given a prescription for this medication. He presented again to the emergency department on February 07 with altered mental status and persistent fever. Past medical history is also notable for remote heavy alcohol use, IV drug use, and a history of hepatitis. A CT of the head completed yesterday was negative for hemorrhage or acute process. No significant abnormality identified. I independently reviewed these images. He did have a lumbar puncture completed, CSF clear, colorless, no xanthochromia, CSF WBC 9, R BC 4, glucose 41, total protein 139.4, meaning of fire panel negative. UDS unremarkable, ethyl alcohol level less than 10.0. Tickborne illness screening negative. COVID testing negative. Upper respiratory PCR is negative. Hepatitis serologies, HIV pending. Although patient was encephalopathic and nonverbal at the time of his initial presentation, the symptoms have resolved. He has been treated with ceftriaxone, ampicillin, vancomycin, and acyclovir. Allergies Allergy/AdvReac Type Severity Reaction Status Date / Time No Known Allergies Allergy NKA Verified 11/02/23 10:45 Home Medications Medication Instructions Recorded Confirmed Type cholecalciferol (vitamin D3) 10 0 mcg PO DAILY ##0 10/26/19 02/07/23 History mcg (400 unit) capsule (Vitamin D3) cyanocobalamin (vitamin B-12) 0 tab PO DAILY ##0 10/26/19 02/07/23 History ginkgo biloba 0 mg PO DAILY ##0 10/26/19 02/07/23 History milk thistle 140 mg capsule 0 mg PO DAILY ##0 10/26/19 02/07/23 History multivitamin 1 tab PO DAILY 10/26/19 02/07/23 History pyridoxine (vitamin B6) 25 mg 0 mg PO DAILY ##0 10/26/19 02/07/23 History tablet (Vitamin B-6) vitamin E 268 mg (400 unit) capsule 0 unit PO DAILY 10/26/19 02/07/23 History doxycycline hyclate 100 mg tablet 100 mg PO BID 14 days #28 tabs 02/03/23 02/07/23 Rx sodium bicarbonate 650 mg tablet 650 mg PO BID #14 tabs 02/03/23 02/07/23 Rx Patient History Medical History (Updated 02/08/23 @ 09:39 by Fermin Niño MD) Fatty liver Hearing loss in left ear History of manic depressive disorder Surgical History History of placement of ear tubes History of eye surgery History of colonoscopy Family History Father Diabetes Brother Diabetes Sister No problems noted. Other No family history of adverse response to anesthesia Social History Smoking Status: Never smoker Tobacco Type: Smokeless Tobacco (Dip or Chew) Second Hand Exposure: No; Do You Dip or Chew Tobacco: Yes; Hx Alcohol Use: No Hx Substance Use: No Preferred Language: Turkish Communication Ability: Effective [employer] Required: No Beliefs That Will Affect Care: None marital status: Current Living Situation: Spouse current occupational status: employed Other Information That Helps Us Care for You: No Feels Safe at Home: Yes Safety Concerns: Feels Safe At This Time Assistive Devices: Glasses Review of Systems Constitutional: as per Subjective / HPI, + fever and + body aches Eyes: no blind spots and no diplopia Ear, Nose, Mouth, Throat: no hearing loss Respiratory: no cough and no dyspnea Cardiovascular: no chest pain and no palpitations Gastrointestinal: no nausea and no vomiting Genitourinary: no dysuria Musculoskeletal: as per Subjective / HPI, + joint pain and + body aches; no neck pain and no myalgia Integumentary: no rash and no lesions Neurologic: as per Subjective / HPI and + headache(s); no localized weakness, no loss of sensation, no tremor(s) and no seizure-like activity Psychiatric: no depression and no anxiety Hematologic / Lymphatic: no easy bleeding and no easy bruising Exam (Neuro) Constitutional: well developed and well nourished; no acute distress Eyes: normal visual gan by confrontation, PERRL and EOM intact bilaterally Neurologic: Oriented to:: Person, Place and Time Memory: Short Term Intact and Remote Intact Attention: Span Intact and Concentration Intact Speech Fluency: negative Dysarthria or Dysfluency Speech Aphasia: negative Aphasia Fund of Knowledge: Current Events, Past History and Vocabulary Cranial Nerves: Normal II, III, IV, , V, VII, VIII, IX, X, XI and XII Motor Strength: Normal Lower Extremities and Normal Upper Extremities Motor Tone: Normal Lower Extremities and Normal Upper Extremities Muscle Bulk/Involuntary Movements: No Involuntary Movements; negative Muscle Atrophy Sensation: Light Touch Intact, Pain/Temperature Intact and Proprioception Intact Coordination: Normal; negative Dysdiadochokinesia, Finger-Nose Abnormal or Heel-Saldana Abnormal Deep Tendon Reflexes: Rt Triceps: 2+, Lt Triceps: 2+, Rt Biceps: 2+, Lt Biceps: 2+, Rt Brachioradialis: 2+, Lt Brachioradialis: 2+, Rt Patellar: 2+, Lt Patellar: 2+, Rt Ankle: 2+ and Lt Ankle: 2+ Special Tests: negative Babinski Present Results & Data Vital Signs (Past 12 Hours) Vital Signs Temp Pulse Pulse Resp BP Pulse Ox O2 Del Method 02/08/23 07:30 36.8 C 76 18 135/77 97 Room Air 02/08/23 03:59 37.4 C 77 18 133/79 97 Room Air 02/08/23 00:25 36.8 C 02/08/23 00:03 38.0 C H 02/07/23 23:03 38.7 C H 80 20 143/84 H 94 Room Air 02/07/23 22:51 81 Laboratory Results WBC 5.69, hemoglobin 13.0, hematocrit 35.7, platelet count 232, sodium 127, potassium 3.4, BUN 12, creatinine 0.95, glucose 139, hemoglobin A1c 6.6, AST 64, ALT 132, ammonia 32.0, total CK 35, CRP 7.75, vitamin B12 877, thiamine level pending, urinalysis negative, CSF clear, colorless, no xanthochromia, CSF WBC 9, RBC 4, glucose 41, CSF total protein 139.4, CSF BioFire panel negative, CSF West Nile antibody pending, urine tox screen negative, ethyl alcohol level less than 10.0, labs as described in the HPI. Diagnostic Findings CT of the head is as described in the HPI, I independently reviewed these images. Electrocardiogram reveals a normal sinus rhythm, 68 bpm. Coding Level of Care Code 69978 INT INP/OBS CARE 3/75MIN Diagnoses Altered mental status, unspecified altered mental status type R41.82 Altered mental status type: unspecified Aseptic meningitis G03.0 Time Spent (min) 80 (1) AMS (altered mental status) Altered mental status type: unspecified Qualified Code(s): R41.82 - Altered mental status, unspecified
[2023-02-08 12:29] LABS: HBSAG NON-REACTIVE (NON-REACTIVE); Hepatitis A Antibody IgM NON-REACTIVE (NON-REACTIVE); Hepatitis B Core Antibody IgM NON-REACTIVE (NON-REACTIVE)
[2023-02-08] MEDS: cefTRIAXone SODIUM 2,000 MG in DEXTROSE 5 % MINI-B 50 ML IV SCH ×2 (12:55→22:16)
--- NOTE | 2023-02-08 14:06 | XRay Report ---
ORBIT RADIOGRAPHS 3 VIEWS HISTORY: pre-MRI screening. COMPARISON: Head CT February 07, 2023. FINDINGS: There are no radiopaque foreign bodies identified within the orbits. IMPRESSION: No radiopaque foreign bodies identified within the orbits. ACT 112: Negative or not required by law. Electronically signed by: Aden Araujo M.D. 02/08/2023 2:04 PM
[2023-02-08] MEDS ORDERED: GADOBUTROL 65ML VIAL IV ONE (14:36)
--- NOTE | 2023-02-08 14:51 | Hospitalist Progress Note ---
Date of Service February 08, 2023 Assessment & Plan (1) Acute metabolic encephalopathy: Plan: likely related to viral syndrome versus aseptic meningitis CSF studies so far unremarkable, some studies are still pending Infectious disease involved. Awaiting recommendations Neurology involved MRI ordered per neurology recommendation Continue ceftriaxone, ampicillin, vancomycin, acyclovir for possible meningitis Clinically improving with improved headache, mentation (2) AMS (altered mental status): (3) Hyponatremia: Plan: -Sodium at 127 today -His workup today shows a serum osmolality of 270, urine osmolality of 549, with urine sodium of 110 -The patient appears euvolemic to slightly dry on exam at this time - had reported that the patient has had poor oral intake of food over the past week but was drinking water consistently -At this time the patient's labs and volume status are most consistent with SIADH -TSH obtained on 02/03 was WNL -S/P 2L NSS in the ED (4) Transaminitis: Plan: -LFT's have been increasing since 02/03 -Patient denies abdominal discomfort and has benign abd exam -Denies recent alcohol use, AST/ALT ration does not indicate recent alcohol use -Has been alternating tylenol and ibuprofen for recent symptoms at home -Was perviously incarcerated so higher risk for possible hepatitis - hepatitis panel negative - liver ultrasound was negative -Avoid acetaminophen for now Most likely related to viral etiology (5) Hyperglycemia: Plan: -Glucose of 125 today, was 190 on 02/03 -No previous hx of DM - A1c was 6.6% - newly diagnosed diabetes mellitus May need to be discharged on oral hypoglycemic agent (6) HTN (hypertension): Plan: -Stable -Not currently on antihypertensives -Continue to monitor (7) Hyperlipidemia: Plan: -Not currently on a statin Admission and Anticipated Discharge Date Admission Date: February 07, 2023 Subjective Patient says that he feels much better. His headache has improved from 01/15-07/16 in severity. He does not have photophobia. He is able to think More clearly. Review of Systems Review of Systems: All systems reviewed & are unremarkable except as noted in Subjective Physical Exam Physical Exam: general: Awake, conversant Heart: S1, S2/regular rate and rhythm, no murmur rubs or gallops Lungs: Clear to auscultation bilaterally. Normal effort Abdomen: Soft/nontender/nondistended. No hepatosplenomegaly Extremities: No clubbing/cyanosis. No edema Behavior: Appropriate, cooperative Results & Data Results & Data Vital Signs (Past 12 Hours) Vital Signs Temp Pulse Resp BP Pulse Ox O2 Del Method 02/08/23 11:36 36.8 C 83 18 142/61 H 97 Room Air 02/08/23 07:30 36.8 C 76 18 135/77 97 Room Air 02/08/23 03:59 37.4 C 77 18 133/79 97 Room Air Laboratory Results Abnormal lab results 02/07/23 02/07/23 02/07/23 Range/Units 14:15 16:27 20:37 RBC (4.70-6.10) M/uL Hgb (14.0-18.0) g/dl Hct (42.0-52.0) % MCHC (32.0-36.0) g/dL MPV (9.4-12.4) fL Lymph # (Auto) (1.20-3.40) K/uL PT (9.0-12.0) Seconds Sodium 128 L (136-145) mmol/L Potassium (3.5-5.1) mmol/L Chloride (98-107) mmol/L Glucose (70-99(Fasting)) mg/dl POC Glucose 147 H (70-99) mg/dl Hemoglobin A1c (4.5-5.6) % Calcium (8.6-10.3) mg/dl AST (13-39) U/L ALT (7-52) U/L Alkaline Phosphatase (34-104) U/L Albumin (3.4-5.0) gm/dl CSF WBC 9 H (0-5) CSF Total Protein 139.4 H (15-45) mg/dl Acetaminophen < 3 L (10-30) ug/ml 02/08/23 02/08/23 02/08/23 Range/Units 06:29 07:05 11:18 RBC 4.25 L (4.70-6.10) M/uL Hgb 13.0 L (14.0-18.0) g/dl Hct 35.7 L (42.0-52.0) % MCHC 36.4 H (32.0-36.0) g/dL MPV 8.9 L (9.4-12.4) fL Lymph # (Auto) 0.97 L (1.20-3.40) K/uL PT 12.4 H (9.0-12.0) Seconds Sodium 127 L (136-145) mmol/L Potassium 3.4 L (3.5-5.1) mmol/L Chloride 96 L (98-107) mmol/L Glucose 139 H (70-99(Fasting)) mg/dl POC Glucose 122 H 103 H (70-99) mg/dl Hemoglobin A1c 6.6 H (4.5-5.6) % Calcium 7.9 L (8.6-10.3) mg/dl AST 64 H (13-39) U/L ALT 132 H (7-52) U/L Alkaline Phosphatase 123 H (34-104) U/L Albumin 3.3 L (3.4-5.0) gm/dl CSF WBC (0-5) CSF Total Protein (15-45) mg/dl Acetaminophen (10-30) ug/ml Diagnostic Findings Lumbar Puncture 02/07/23 12:00 FLUOROSCOPICALLY GUIDED LUMBAR PUNCTURE CLINICAL HISTORY: Altered mental status, ED unsuccessful after multiple att empts FLUOROSCOPY TIME: 18 seconds. A single fluoroscopic spot images of the lumbar spine. Ka,r: 4.7 mGy FLUOROSCOPY IMAGES: 1 PROCEDURE: The procedure, risks and benefits were discussed with the patient including the risk of spinal headache, bleeding and infection. The patient agreed to the procedure and informed written consent was obtained. The procedure was performed by Dr. Jean following a timeout. The left L2-L3 interlaminar space was targeted. Skin overlying the space was prepped and draped in the usual sterile fashion and local anesthesia was achieved with 1% lidocaine. Under intermittent fluoroscopic guidance, a 20-gauge x 3 1/2 in. Sprotte needle was inserted into the thecal sac. A total of 10 cc of clear, colorless cerebral spinal fluid was obtained and spread amongst 4 vials. The patient tolerated the procedure well. There were no immediate complications. The specimens were sent to the laboratory at the request of the referring physician. IMPRESSION: Successful fluoroscopic guided lumbar puncture with removal of 10 cc of clear, colorless cerebral spinal fluid. No immediate complications. ACT 112: Negative or not required by law. Electronically signed by: Jameson Jean M.D. 02/07/2023 3:09 PM Liver Ultrasound 02/07/23 14:24 ABDOMINAL ULTRASOUND, RIGHT UPPER QUADRANT HISTORY: Elevated liver enzymes.. COMPARISON: Abdomen and pelvis CT 08/12/2009. FINDINGS: Pancreas: The pancreatic head and tail are obscured by overlying bowel gas. The remaining portions of the pancreas are within normal limits. Liver: The liver is echogenic consistent with fatty change. 17 cm in length. Gallbladder: No gallbladder wall thickening. No gallstones. CBD: 4 mm. Right kidney: No hydronephrosis. IMPRESSION: 1. Hepatic steatosis. 2. Normal gallbladder. No gallstones. ACT 112: Negative or not required by law. Electronically signed by: Jameson Jean M.D. 02/07/2023 5:56 PM Orbit X-Ray 02/08/23 11:43 ORBIT RADIOGRAPHS 3 VIEWS HISTORY: pre-MRI screening. COMPARISON: Head CT February 07, 2023. FINDINGS: There are no radiopaque foreign bodies identified within the orbits. IMPRESSION: No radiopaque foreign bodies identified within the orbits. ACT 112: Negative or not required by law. Electronically signed by: Aden Araujo M.D. 02/08/2023 2:04 PM PG Care Time/CCT Total # of Minutes Spent Total Time Spent with Patient: Total time spent is greater than 50% in coordination of care (as documented) at patient's floor/unit and/or counseling patient: Coding Level of Care Code 71231 SUB INP/OBS CARE 2/35MIN Diagnoses Acute metabolic encephalopathy G93.41 Altered mental status, unspecified altered mental status type R41.82 Altered mental status type: unspecified Hyponatremia E87.1 Transaminitis R74.01 Hyperglycemia R73.9 HTN (hypertension) I10 Hyperlipidemia E78.5 (2) AMS (altered mental status) Altered mental status type: unspecified Qualified Code(s): R41.82 - Altered mental status, unspecified
--- NOTE | 2023-02-08 15:41 | Infectious Disease Consult ---
Date of Consultation February 08, 2023 Assessment & Plan (1) Elevated liver function tests: (2) Encephalopathy acute: (3) Aseptic meningitis: Plan 52yo male with pmh of HTN, HL ,remote alcohol abuse, presents for evaluation of fever and headache. He initially presented on 02/03 with acute onset of headache for 24 hours associated with nasal congestion, sinus pressure, body aches. ED labs at the time noted for hyponatremia, transaminitis. His Respiratory panel was negative. Lyme screen was negative. He received doxycycline and was discharged on doxycycline which he took. He returned on 02/06 with persistent symptoms. He denies travel, oral lesions/cold sores, genital lesions, tick bites, bird or mouse exposure, cough, rash, change in urine or bowel habits, chest pain. 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 He complains of sinus congestion, fatigue, headache, photophobia. He is HDS in Ed.. wbc 5.74, ast 52, alt 125, alk p 120 , crp 7.5, Esr 28, procal 0.29. Liver US shows Hepatic steatosis. CT head negative for bleed or acute process. He underwent LP. CSF clear with 9 WBC, 4 RBC, Glucose 41, protein 139.4. Meningitis Encephalitis panel is Negative Including HSV1/2 and Vzv PCR. UDS negative. Respiratory panel negative. Anaplasma/Ehrlichia and Babesia PCR is not detected, Lyme serology negative. Rickettsia, Typhus fever and Q fever serology negative. Acute hepatitis serology and HIv testing negative. He is currently on Vancomycin, ampicillin, ceftriaxone and Acyclovir. He is awake and alert. He complains of sinus congestion and headache on my exam, but improved. ID consulted for possible meningitis. Micro CSF cx 02/07 NGTD BC 02/07 NGTD Abx [id number]/- ongoing Vanco 02/07- ongoing Acyclovir 02/07- ongoing Ampicillin 02/07 - ongoing #Headaches # Nasal congestion #? meningitis; signs of mild meningeal inflammation with wbc of 9 ( but no diff), he did receive abx prior to LP - unclear if this decreased yield Recommendations His presentation may be viral M/E panel neg for HSV and VZv ; discontinue Acyclovir. Other viruses tested on panal also neg. Continue abx ( Vancomycin , Ceftriaxone, Ampicillin, ) pending CSF cx. Pt received abx prior to LP. If csf cx negative, would discontinue antibiotics Follow up Lyme csf studies, although likely negative as serum Lyme Negative Follow up csf - EBV [place], vdrl results Check syphilis ab with reflex rpr, tppa in serum Follow up MRI head Follow up Blood culture Discussed with hospitalist Thank you for this consultation. ID will continue to follow. Tato Alexander MD, MPH Infectious Disease [facility] Call [phone] with questions Consultation Information Consultation was provided via telemedicine using two-way real-time interactive telecommunication between the patient and the telemedicine provider. For the duration of the visit, the provider was performing the assessment from a different facility than the patient. This includesuse of bluetooth stethoscope forauscultationperformed by the telepresenter that the telemedicine provider can hear if described in the physical exam. Test Evaluator contact information: Please call [facility] Call Center . (Phone Number For Physician Use Only) After establishing a telemedicine visit, patient was: Patient was verified with two unique identifiers and Patient/authorized rep acknowledged consent and understanding Time Spent with Patient: Initial => 75 min History of Present Illness Reason for Consultation: AMS, fever, concern for meningitis Requesting Physician: Nicole Romero MD Attending Physician: Nicole Romero MD History of Present Illness 52yo male with pmh of HTN, HL ,remote alcohol abuse, presents for evaluation of fever and headache. He initially presented on 02/03 with acute onset of headache for 24 hours associated with nasal congestion, sinus pressure, body aches. ED labs at the time noted for hyponatremia, transaminitis. His Respiratory panel was negative. Lyme screen was negative. He received doxycycline and was discharged on doxycycline which he took. He returned on 02/06 with persistent symptoms. He denies travel, oral lesions/cold sores, genital lesions, tick bites, bird or mouse exposure, cough, rash, change in urine or bowel habits, chest pain. 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 He complains of sinus congestion, fatigue, headache, photophobia. He is HDS in Ed.. wbc 5.74, ast 52, alt 125, alk p 120 , crp 7.5, Esr 28, procal 0.29. Liver US shows Hepatic steatosis. CT head negative for bleed or acute process. He underwent LP. CSF clear with 9 WBC, 4 RBC, Glucose 41, protein 139.4. Meningitis Encephalitis panel is Negative Including HSV1/2 and Vzv PCR. UDS negative. Respiratory panel negative. Anaplasma/Ehrlichia and Babesia PCR is not detected, Lyme serology negative. Rickettsia, Typhus fever and Q fever serology negative. Acute hepatitis serology and HIv testing negative. He is currently on Vancomycin, ampicillin, ceftriaxone and Acyclovir. He is awake and alert. He complains of sinus congestion and headache on my exam, but improved. ID consulted for possible meningitis. Allergies Allergy/AdvReac Type Severity Reaction Status Date / Time No Known Allergies Allergy NKA Verified 02/07/23 10:45 Home Medications Medication Instructions Recorded Confirmed Type cholecalciferol (vitamin D3) 10 0 mcg PO DAILY ##0 10/26/19 02/07/23 History mcg (400 unit) capsule (Vitamin D3) cyanocobalamin (vitamin B-12) 0 tab PO DAILY ##0 10/26/19 02/07/23 History ginkgo biloba 0 mg PO DAILY ##0 10/26/19 02/07/23 History milk thistle 140 mg capsule 0 mg PO DAILY ##0 10/26/19 02/07/23 History multivitamin 1 tab PO DAILY 10/26/19 02/07/23 History pyridoxine (vitamin B6) 25 mg 0 mg PO DAILY ##0 10/26/19 02/07/23 History tablet (Vitamin B-6) vitamin E 268 mg (400 unit) capsule 0 unit PO DAILY 10/26/19 02/07/23 History doxycycline hyclate 100 mg tablet 100 mg PO BID 14 days #28 tabs 02/03/23 02/07/23 Rx sodium bicarbonate 650 mg tablet 650 mg PO BID #14 tabs 02/03/23 02/07/23 Rx Patient History Medical History (Updated 02/08/23 @ 14:45 by Nicole Romero MD) Fatty liver Hearing loss in left ear History of manic depressive disorder Surgical History History of placement of ear tubes History of eye surgery History of colonoscopy Family History Father Diabetes Brother Diabetes Sister No problems noted. Other No family history of adverse response to anesthesia Social History Smoking Status: Never smoker Tobacco Type: Smokeless Tobacco (Dip or Chew) Second Hand Exposure: No; Do You Dip or Chew Tobacco: Yes; Hx Alcohol Use: No Hx Substance Use: No Preferred Language: Yemeni Communication Ability: Effective Supervisor Assembly Stock Required: No Beliefs That Will Affect Care: None marital status: Current Living Situation: Spouse current occupational status: employed Other Information That Helps Us Care for You: No Feels Safe at Home: Yes Safety Concerns: Feels Safe At This Time Assistive Devices: None Review of System A 10 point ROS obtained . Pertinent positives as per Hpi Physical Exam Physical Exam: Awake, alert, sounds congested No oral lesion or sores, dentition fair PERRLA, EOMI + facial sinus tenderness to palp RRR No increased WOB No rash Soft abdomen No LE edema AAA*3 Results & Data Vital Signs (Past 12 Hours) Vital Signs Temp Pulse Resp BP Pulse Ox O2 Del Method 02/08/23 11:36 36.8 C 83 18 142/61 H 97 Room Air 02/08/23 07:30 36.8 C 76 18 135/77 97 Room Air 02/08/23 03:59 37.4 C 77 18 133/79 97 Room Air Laboratory Results Laboratory Results - last 48 hr 02/07/23 02/07/23 02/07/23 09:05 09:05 09:34 WBC 6.84 RBC 4.37 L Hgb 13.4 L Hct 36.9 L MCV 84.4 MCH 30.7 MCHC 36.3 H RDW Std Deviation 37.4 RDW Coeff of Linda 12.2 Plt Count 195 MPV 9.4 Immature Gran % (Auto) 0.9 Neut % (Auto) 84.0 Lymph % (Auto) 8.9 Pratt % (Auto) 5.8 Eos % (Auto) 0.1 Baso % (Auto) 0.3 Neut # (Auto) 5.74 Lymph # (Auto) 0.61 L Pratt # (Auto) 0.40 Eos # (Auto) 0.01 Baso # (Auto) 0.02 Immature Gran # (Auto) 0.06 Peripher Smr Path Cons ESR 28 H PT 12.3 H INR 1.1 APTT 27.9 PTT Ratio 1.0 VBG pH 7.55 H VBG pCO2 22 L VBG pO2 78 VBG HCO3 19 VBG O2 Saturation 97.3 VBG Base Excess -1.2 Sodium 125 L Potassium 3.6 Chloride 96 L Carbon Dioxide 20 L Anion Gap 9 BUN 16 Creatinine 0.79 Est Cr Clr Drug Dosing 117.1 Est GFR ( Amer) 118.0 Est GFR (Non-Af Amer) 101.8 BUN/Creatinine Ratio 20.3 H Glucose 125 H POC Glucose Estimat Average Glucose Hemoglobin A1c Osmolality Lactate 1.5 Calcium 7.7 L Magnesium 2.0 Total Bilirubin 1.3 H Direct Bilirubin 0.5 H AST 52 H ALT 125 H Alkaline Phosphatase 120 H Ammonia 32.0 Total Creatine Kinase 35 Troponin I High Sens 18.9 Cancelled C-Reactive Protein 7.75 H Total Protein 6.4 Albumin 3.4 Globulin Albumin/Globulin Ratio Vitamin B12 877 Procalcitonin 0.29 Random Cortisol Urine Color Urine Appearance Urine pH Ur Specific Ferdinand Urine Protein Urine Glucose (UA) Urine Ketones Urine Blood Urine Nitrite Urine Bilirubin Urine Urobilinogen Ur Leukocyte Esterase Urine Osmolality Ur Random Sodium Fluid Comment CSF Appearance CSF Color Xanthrochromic CSF WBC CSF RBC CSF Cell Count Tube # CSF Chemistry Tube # CSF Glucose CSF Total Protein CSF C.neoform/gat PCR CSF CMV DNA (PCR) CSF Enterovirus (PCR) CSF E. coli K1 (PCR) CSF H. influenzae (PCR) CSF HSV I (PCR) CSF HSV II (PCR) CSF HHV 6 (PCR) CSF L.monocytogenes PCR CSF N. meningitidis PCR CSF Parechovirus (PCR) CSF S. agalactiae (PCR) CSF S. pneumoniae (PCR) CSF VZV DNA (PCR) Urine Opiates Screen Ur Methadone, Qual Acetaminophen Urine Barbiturates Ur Phencyclidine (PCP) U Amphetamin/Meth Scrn MDMA (Ecstasy) Screen U Benzodiazepines Scrn Ur Cocaine Metabolite U Marijuana (THC) Screen Ethyl Alcohol mg/dL < 10.0 Adenovirus (PCR) Not Detected Anaplasma Smear See Comment Babesia Smear See Comment B. pertussis DNA (PCR) Not Detected B.parapertussis DNA PCR Not Detected Lyme Disease IgG Ab Negative Lyme Disease IgM Ab Negative C. pneumoniae DNA (PCR) Not Detected Coronavirus OC43 (PCR) Not Detected Coronavirus HKU1 (PCR) Not Detected Coronavirus 229E (PCR) Not Detected SARS-CoV-2 (PCR) Not Detected Coronavirus NL63 (PCR) Not Detected Cryptococcus Source Cryptococcal Ag (Latex) Hepatitis A IgM Ab Hep Bs Antigen Hep Bs Ag Confirmation Hep B Core IgM Ab Hepatitis C Ab (EIA) HIV (1&2) Ag & Ab Conf Human Metapneumovir PCR Not Detected Influenza Type A (PCR) Not Detected Influenza Type B (PCR) Not Detected M. pneumoniae (PCR) Not Detected Parainfluenza 1 (PCR) Not Detected Parainfluenza 2 (PCR) Not Detected Parainfluenza 3 (PCR) Not Detected Parainfluenza 4 (PCR) Not Detected RSV (PCR) Not Detected Entero/Rhino (PCR) Not Detected 02/07/23 02/07/23 02/07/23 10:09 10:15 12:00 WBC RBC Hgb Hct MCV MCH MCHC RDW Std Deviation RDW Coeff of Linda Plt Count MPV Immature Gran % (Auto) Neut % (Auto) Lymph % (Auto) Pratt % (Auto) Eos % (Auto) Baso % (Auto) Neut # (Auto) Lymph # (Auto) Pratt # (Auto) Eos # (Auto) Baso # (Auto) Immature Gran # (Auto) Peripher Smr Path Cons ESR PT INR APTT PTT Ratio VBG pH VBG pCO2 VBG pO2 VBG HCO3 VBG O2 Saturation VBG Base Excess Sodium Potassium Chloride Carbon Dioxide Anion Gap BUN Creatinine Est Cr Clr Drug Dosing Est GFR ( Amer) Est GFR (Non-Af Amer) BUN/Creatinine Ratio Glucose POC Glucose Estimat Average Glucose Hemoglobin A1c Osmolality 270 L Lactate Calcium Magnesium Total Bilirubin Direct Bilirubin AST ALT Alkaline Phosphatase Ammonia Total Creatine Kinase Troponin I High Sens C-Reactive Protein Total Protein Albumin Globulin Albumin/Globulin Ratio Vitamin B12 Procalcitonin Random Cortisol Urine Color Yellow Urine Appearance Clear Urine pH 7.5 Ur Specific Ferdinand 1.017 Urine Protein Negative Urine Glucose (UA) Negative Urine Ketones 1+ H Urine Blood Negative Urine Nitrite Negative Urine Bilirubin Negative Urine Urobilinogen Negative Ur Leukocyte Esterase Negative Urine Osmolality 549 Ur Random Sodium 110 Fluid Comment CSF Appearance CSF Color Xanthrochromic CSF WBC CSF RBC CSF Cell Count Tube # CSF Chemistry Tube # CSF Glucose CSF Total Protein CSF C.neoform/gat PCR CSF CMV DNA (PCR) CSF Enterovirus (PCR) CSF E. coli K1 (PCR) CSF H. influenzae (PCR) CSF HSV I (PCR) CSF HSV II (PCR) CSF HHV 6 (PCR) CSF L.monocytogenes PCR CSF N. meningitidis PCR CSF Parechovirus (PCR) CSF S. agalactiae (PCR) CSF S. pneumoniae (PCR) CSF VZV DNA (PCR) Urine Opiates Screen Neg Ur Methadone, Qual Neg Acetaminophen Urine Barbiturates Neg Ur Phencyclidine (PCP) Neg U Amphetamin/Meth Scrn Neg MDMA (Ecstasy) Screen Neg U Benzodiazepines Scrn Neg Ur Cocaine Metabolite Neg U Marijuana (THC) Screen Neg Ethyl Alcohol mg/dL Adenovirus (PCR) Anaplasma Smear Babesia Smear B. pertussis DNA (PCR) B.parapertussis DNA PCR Lyme Disease IgG Ab Lyme Disease IgM Ab C. pneumoniae DNA (PCR) Coronavirus OC43 (PCR) Coronavirus HKU1 (PCR) Coronavirus 229E (PCR) SARS-CoV-2 (PCR) Coronavirus NL63 (PCR) Cryptococcus Source Cancelled Cryptococcal Ag (Latex) Cancelled Hepatitis A IgM Ab NON-REACTIVE Hep Bs Antigen NON-REACTIVE Hep Bs Ag Confirmation TNP Hep B Core IgM Ab NON-REACTIVE Hepatitis C Ab (EIA) NON-REACTIVE HIV (1&2) Ag & Ab Conf NON-REACTIVE Human Metapneumovir PCR Influenza Type A (PCR) Influenza Type B (PCR) M. pneumoniae (PCR) Parainfluenza 1 (PCR) Parainfluenza 2 (PCR) Parainfluenza 3 (PCR) Parainfluenza 4 (PCR) RSV (PCR) Entero/Rhino (PCR) 02/07/23 02/07/23 02/07/23 14:15 14:52 16:27 WBC RBC Hgb Hct MCV MCH MCHC RDW Std Deviation RDW Coeff of Linda Plt Count MPV Immature Gran % (Auto) Neut % (Auto) Lymph % (Auto) Pratt % (Auto) Eos % (Auto) Baso % (Auto) Neut # (Auto) Lymph # (Auto) Pratt # (Auto) Eos # (Auto) Baso # (Auto) Immature Gran # (Auto) Peripher Smr Path Cons ESR PT INR APTT PTT Ratio VBG pH VBG pCO2 VBG pO2 VBG HCO3 VBG O2 Saturation VBG Base Excess Sodium Cancelled 128 L Potassium Chloride Carbon Dioxide Anion Gap BUN Creatinine Est Cr Clr Drug Dosing Est GFR ( Amer) Est GFR (Non-Af Amer) BUN/Creatinine Ratio Glucose POC Glucose Estimat Average Glucose Hemoglobin A1c Osmolality Lactate Calcium Magnesium Total Bilirubin Direct Bilirubin AST ALT Alkaline Phosphatase Ammonia Total Creatine Kinase Troponin I High Sens C-Reactive Protein Total Protein Albumin Globulin Albumin/Globulin Ratio Vitamin B12 Procalcitonin Random Cortisol Cancelled 20.63 Urine Color Urine Appearance Urine pH Ur Specific Ferdinand Urine Protein Urine Glucose (UA) Urine Ketones Urine Blood Urine Nitrite Urine Bilirubin Urine Urobilinogen Ur Leukocyte Esterase Urine Osmolality Ur Random Sodium Fluid Comment CSF Appearance Clear CSF Color Colorless Xanthrochromic No xanthochromia CSF WBC 9 H CSF RBC 4 CSF Cell Count Tube # 3 CSF Chemistry Tube # 1 CSF Glucose 41 CSF Total Protein 139.4 H CSF C.neoform/gat PCR Not Detected CSF CMV DNA (PCR) Not Detected CSF Enterovirus (PCR) Not Detected CSF E. coli K1 (PCR) Not Detected CSF H. influenzae (PCR) Not Detected CSF HSV I (PCR) Not Detected CSF HSV II (PCR) Not Detected CSF HHV 6 (PCR) Not Detected CSF L.monocytogenes PCR Not Detected CSF N. meningitidis PCR Not Detected CSF Parechovirus (PCR) Not Detected CSF S. agalactiae (PCR) Not Detected CSF S. pneumoniae (PCR) Not Detected CSF VZV DNA (PCR) Not Detected Urine Opiates Screen Ur Methadone, Qual Acetaminophen Cancelled < 3 L Urine Barbiturates Ur Phencyclidine (PCP) U Amphetamin/Meth Scrn MDMA (Ecstasy) Screen U Benzodiazepines Scrn Ur Cocaine Metabolite U Marijuana (THC) Screen Ethyl Alcohol mg/dL Adenovirus (PCR) Anaplasma Smear Babesia Smear B. pertussis DNA (PCR) B.parapertussis DNA PCR Lyme Disease IgG Ab Lyme Disease IgM Ab C. pneumoniae DNA (PCR) Coronavirus OC43 (PCR) Coronavirus HKU1 (PCR) Coronavirus 229E (PCR) SARS-CoV-2 (PCR) Coronavirus NL63 (PCR) Cryptococcus Source Cryptococcal Ag (Latex) Hepatitis A IgM Ab Hep Bs Antigen Hep Bs Ag Confirmation Hep B Core IgM Ab Hepatitis C Ab (EIA) HIV (1&2) Ag & Ab Conf Human Metapneumovir PCR Influenza Type A (PCR) Influenza Type B (PCR) M. pneumoniae (PCR) Parainfluenza 1 (PCR) Parainfluenza 2 (PCR) Parainfluenza 3 (PCR) Parainfluenza 4 (PCR) RSV (PCR) Entero/Rhino (PCR) 02/07/23 02/08/23 02/08/23 20:37 06:29 07:05 WBC 5.69 RBC 4.25 L Hgb 13.0 L Hct 35.7 L MCV 84.0 MCH 30.6 MCHC 36.4 H RDW Std Deviation 38.3 RDW Coeff of Linda 12.6 Plt Count 232 MPV 8.9 L Immature Gran % (Auto) 1.2 Neut % (Auto) 70.2 Lymph % (Auto) 17.0 Pratt % (Auto) 10.4 Eos % (Auto) 0.5 Baso % (Auto) 0.7 Neut # (Auto) 3.99 Lymph # (Auto) 0.97 L Pratt # (Auto) 0.59 Eos # (Auto) 0.03 Baso # (Auto) 0.04 Immature Gran # (Auto) 0.07 Peripher Smr Path Cons ESR PT 12.4 H INR 1.1 APTT PTT Ratio VBG pH VBG pCO2 VBG pO2 VBG HCO3 VBG O2 Saturation VBG Base Excess Sodium 127 L Potassium 3.4 L Chloride 96 L Carbon Dioxide 25 Anion Gap 6 BUN 12 Creatinine 0.95 Est Cr Clr Drug Dosing 91.2 Est GFR ( Amer) 104.8 Est GFR (Non-Af Amer) 90.4 BUN/Creatinine Ratio 12.6 Glucose 139 H POC Glucose 147 H 122 H Estimat Average Glucose 143 Hemoglobin A1c 6.6 H Osmolality Lactate Calcium 7.9 L Magnesium 2.2 Total Bilirubin 0.9 Direct Bilirubin AST 64 H ALT 132 H Alkaline Phosphatase 123 H Ammonia Total Creatine Kinase Troponin I High Sens C-Reactive Protein Total Protein 6.4 Albumin 3.3 L Globulin 3.1 Albumin/Globulin Ratio 1.1 Vitamin B12 Procalcitonin Random Cortisol Urine Color Urine Appearance Urine pH Ur Specific Ferdinand Urine Protein Urine Glucose (UA) Urine Ketones Urine Blood Urine Nitrite Urine Bilirubin Urine Urobilinogen Ur Leukocyte Esterase Urine Osmolality Ur Random Sodium Fluid Comment CSF Appearance CSF Color Xanthrochromic CSF WBC CSF RBC CSF Cell Count Tube # CSF Chemistry Tube # CSF Glucose CSF Total Protein CSF C.neoform/gat PCR CSF CMV DNA (PCR) CSF Enterovirus (PCR) CSF E. coli K1 (PCR) CSF H. influenzae (PCR) CSF HSV I (PCR) CSF HSV II (PCR) CSF HHV 6 (PCR) CSF L.monocytogenes PCR CSF N. meningitidis PCR CSF Parechovirus (PCR) CSF S. agalactiae (PCR) CSF S. pneumoniae (PCR) CSF VZV DNA (PCR) Urine Opiates Screen Ur Methadone, Qual Acetaminophen Urine Barbiturates Ur Phencyclidine (PCP) U Amphetamin/Meth Scrn MDMA (Ecstasy) Screen U Benzodiazepines Scrn Ur Cocaine Metabolite U Marijuana (THC) Screen Ethyl Alcohol mg/dL Adenovirus (PCR) Anaplasma Smear Babesia Smear B. pertussis DNA (PCR) B.parapertussis DNA PCR Lyme Disease IgG Ab Lyme Disease IgM Ab C. pneumoniae DNA (PCR) Coronavirus OC43 (PCR) Coronavirus HKU1 (PCR) Coronavirus 229E (PCR) SARS-CoV-2 (PCR) Coronavirus NL63 (PCR) Cryptococcus Source Cryptococcal Ag (Latex) Hepatitis A IgM Ab Hep Bs Antigen Hep Bs Ag Confirmation Hep B Core IgM Ab Hepatitis C Ab (EIA) HIV (1&2) Ag & Ab Conf Human Metapneumovir PCR Influenza Type A (PCR) Influenza Type B (PCR) M. pneumoniae (PCR) Parainfluenza 1 (PCR) Parainfluenza 2 (PCR) Parainfluenza 3 (PCR) Parainfluenza 4 (PCR) RSV (PCR) Entero/Rhino (PCR) 02/08/23 11:18 WBC RBC Hgb Hct MCV MCH MCHC RDW Std Deviation RDW Coeff of Linda Plt Count MPV Immature Gran % (Auto) Neut % (Auto) Lymph % (Auto) Pratt % (Auto) Eos % (Auto) Baso % (Auto) Neut # (Auto) Lymph # (Auto) Pratt # (Auto) Eos # (Auto) Baso # (Auto) Immature Gran # (Auto) Peripher Smr Path Cons ESR PT INR APTT PTT Ratio VBG pH VBG pCO2 VBG pO2 VBG HCO3 VBG O2 Saturation VBG Base Excess Sodium Potassium Chloride Carbon Dioxide Anion Gap BUN Creatinine Est Cr Clr Drug Dosing Est GFR ( Amer) Est GFR (Non-Af Amer) BUN/Creatinine Ratio Glucose POC Glucose 103 H Estimat Average Glucose Hemoglobin A1c Osmolality Lactate Calcium Magnesium Total Bilirubin Direct Bilirubin AST ALT Alkaline Phosphatase Ammonia Total Creatine Kinase Troponin I High Sens C-Reactive Protein Total Protein Albumin Globulin Albumin/Globulin Ratio Vitamin B12 Procalcitonin Random Cortisol Urine Color Urine Appearance Urine pH Ur Specific Ferdinand Urine Protein Urine Glucose (UA) Urine Ketones Urine Blood Urine Nitrite Urine Bilirubin Urine Urobilinogen Ur Leukocyte Esterase Urine Osmolality Ur Random Sodium Fluid Comment CSF Appearance CSF Color Xanthrochromic CSF WBC CSF RBC CSF Cell Count Tube # CSF Chemistry Tube # CSF Glucose CSF Total Protein CSF C.neoform/gat PCR CSF CMV DNA (PCR) CSF Enterovirus (PCR) CSF E. coli K1 (PCR) CSF H. influenzae (PCR) CSF HSV I (PCR) CSF HSV II (PCR) CSF HHV 6 (PCR) CSF L.monocytogenes PCR CSF N. meningitidis PCR CSF Parechovirus (PCR) CSF S. agalactiae (PCR) CSF S. pneumoniae (PCR) CSF VZV DNA (PCR) Urine Opiates Screen Ur Methadone, Qual Acetaminophen Urine Barbiturates Ur Phencyclidine (PCP) U Amphetamin/Meth Scrn MDMA (Ecstasy) Screen U Benzodiazepines Scrn Ur Cocaine Metabolite U Marijuana (THC) Screen Ethyl Alcohol mg/dL Adenovirus (PCR) Anaplasma Smear Babesia Smear B. pertussis DNA (PCR) B.parapertussis DNA PCR Lyme Disease IgG Ab Lyme Disease IgM Ab C. pneumoniae DNA (PCR) Coronavirus OC43 (PCR) Coronavirus HKU1 (PCR) Coronavirus 229E (PCR) SARS-CoV-2 (PCR) Coronavirus NL63 (PCR) Cryptococcus Source Cryptococcal Ag (Latex) Hepatitis A IgM Ab Hep Bs Antigen Hep Bs Ag Confirmation Hep B Core IgM Ab Hepatitis C Ab (EIA) HIV (1&2) Ag & Ab Conf Human Metapneumovir PCR Influenza Type A (PCR) Influenza Type B (PCR) M. pneumoniae (PCR) Parainfluenza 1 (PCR) Parainfluenza 2 (PCR) Parainfluenza 3 (PCR) Parainfluenza 4 (PCR) RSV (PCR) Entero/Rhino (PCR) Diagnostic Findings Microbiology 02/07/23 14:15 Cerebral Spinal Fluid Gram Stain - Final 02/07/23 14:15 Cerebral Spinal Fluid CSF Culture - Preliminary No growth to date. 02/07/23 09:34 Blood Aerobic Blood Culture - Preliminary No growth in Aerobic bottle after 24 hours. 02/07/23 09:34 Blood Anaerobic Blood Culture - Preliminary No growth in Anaerobic bottle after 24 hours. 02/07/23 09:05 Blood Aerobic Blood Culture - Preliminary No growth in Aerobic bottle after 24 hours. 02/07/23 09:05 Blood Anaerobic Blood Culture - Preliminary No growth in Anaerobic bottle after 24 hours. Chest X-Ray 02/07/23 09:01 XR chest 1V portable HISTORY: Sepsis COMPARISON: Chest 02/03/2023. FINDINGS: No pneumothorax. No pleural effusions. There are low lung volumes. The heart remains mildly enlarged. No new focal lung consolidations to suggest pneumonia. Mild diffuse interstitial thickening. This has progressed and favors mild congestive change. IMPRESSION: 1. Cardiomegaly with mild congestive change. 2. No focal lung consolidations. ACT 112: Negative or not required by law. Electronically signed by: Jameson Jean M.D. 02/07/2023 9:[address] 02/07/23 09:02 CT SCAN OF THE BRAIN WITHOUT IV CONTRAST CLINICAL HISTORY: Change in mental status. COMPARISON STUDY: No priors. TECHNIQUE: Unenhanced axial CT scan of the brain is performed from the vertex to the skull base. A dose lowering technique was utilized adhering to the principles of ALARA. CT DOSE: 625.8 mGy.cm FINDINGS: Brain parenchyma: The brain parenchyma is normal in appearance. There is no hemorrhage, mass effect, or evidence of acute territorial ischemia by CT criteria. Abdalla-white matter differentiation is preserved. No extra-axial fluid collection is seen. Ventricles, sulci, cisterns: Normal in configuration. Intracranial vasculature: The visualized intracranial vasculature at the skull base is normal in appearance. Calvarium: Unremarkable. Sinuses and mastoids: The visualized paranasal sinuses are clear. The mastoid air cells are well pneumatized. Orbits: The bony orbits are grossly intact. IMPRESSION: No acute intracranial abnormality. ACT 112: Negative or not required by law. Electronically signed by: Martín Alvarez M.D. 02/07/2023 9:43 AM Lumbar Puncture 02/07/23 12:00 FLUOROSCOPICALLY GUIDED LUMBAR PUNCTURE CLINICAL HISTORY: Altered mental status, ED unsuccessful after multiple attempts FLUOROSCOPY TIME: 18 seconds. A single fluoroscopic spot images of the lumbar spine. Ka,r: 4.7 mGy FLUOROSCOPY IMAGES: 1 PROCEDURE: The procedure, risks and benefits were discussed with the patient including the risk of spinal headache, bleeding and infection. The patient agreed to the procedure and informed written consent was obtained. The procedure was performed by Dr. Jean following a timeout. The left L2-L3 interlaminar space was targeted. Skin overlying the space was prepped and draped in the usual sterile fashion and local anesthesia was achieved with 1% lidocaine. Under intermittent fluoroscopic guidance, a 20-gauge x 3 1/2 in. Sprotte needle was inserted into the thecal sac. A total of 10 cc of clear, colorless cerebral spinal fluid was obtained and spread amongst 4 vials. The patient tolerated the procedure well. There were no immediate complications. The specimens were sent to the laboratory at the request of the referring physician. IMPRESSION: Successful fluoroscopic guided lumbar puncture with removal of 10 cc of clear, colorless cerebral spinal fluid. No immediate complications. ACT 112: Negative or not required by law. Electronically signed by: Jameson Jean M.D. 02/07/2023 3:09 PM Liver Ultrasound 02/07/23 14:24 ABDOMINAL ULTRASOUND, RIGHT UPPER QUADRANT HISTORY: Elevated liver enzymes.. COMPARISON: Abdomen and pelvis CT 08/12/2009. FINDINGS: Pancreas: The pancreatic head and tail are obscured by overlying bowel gas. The remaining portions of the pancreas are within normal limits. Liver: The liver is echogenic consistent with fatty change. 17 cm in length. Gallbladder: No gallbladder wall thickening. No gallstones. CBD: 4 mm. Right kidney: No hydronephrosis. IMPRESSION: 1. Hepatic steatosis. 2. Normal gallbladder. No gallstones. ACT 112: Negative or not required by law. Electronically signed by: Jameson Jean M.D. 02/07/2023 5:56 PM Orbit X-Ray 02/08/23 11:43 ORBIT RADIOGRAPHS 3 VIEWS HISTORY: pre-MRI screening. COMPARISON: Head CT February 07, 2023. FINDINGS: There are no radiopaque foreign bodies identified within the orbits. IMPRESSION: No radiopaque foreign bodies identified within the orbits. ACT 112: Negative or not required by law. Electronically signed by: Aden Araujo M.D. 02/08/2023 2:04 PM Medications Administered Home Medications Medication Instructions Recorded Confirmed Last Taken cholecalciferol (vitamin D3) 10 0 mcg PO DAILY ##0 10/26/19 02/07/23 10/28/19 mcg (400 unit) capsule (Vitamin D3) cyanocobalamin (vitamin B-12) 0 tab PO DAILY ##0 10/26/19 02/07/23 10/28/19 ginkgo biloba 0 mg PO DAILY ##0 10/26/19 02/07/23 10/28/19 milk thistle 140 mg capsule 0 mg PO DAILY ##0 10/26/19 02/07/23 10/28/19 multivitamin 1 tab PO DAILY 10/26/19 02/07/23 10/28/19 pyridoxine (vitamin B6) 25 mg 0 mg PO DAILY ##0 10/26/19 02/07/23 10/28/19 tablet (Vitamin B-6) vitamin E 268 mg (400 unit) capsule 0 unit PO DAILY 10/26/19 02/07/23 10/28/19 doxycycline hyclate 100 mg tablet 100 mg PO BID 14 days #28 tabs 02/03/23 02/07/23 Unknown sodium bicarbonate 650 mg tablet 650 mg PO BID #14 tabs 02/03/23 02/07/23 Unknown Active Medications Generic Name Dose Route Start Last Admin Trade Name Freq PRN Reason Stop Dose Admin Ceftriaxone Sodium 2,000 mg/ 50 mls @ 100 mls/hr 02/07/23 23:00 02/08/23 13:25 Dextrose IV 02/17/23 22:59 Infused Q12H ANTHONY Infusion Protocol Acyclovir Sodium 770 mg/ 265.4 mls @ 250 mls/hr 02/07/23 22:00 02/08/23 06:21 Dextrose IV 02/17/23 21:59 Infused Q8H ANTHONY Infusion Protocol Ampicillin Sodium 2,000 mg/ 100 mls @ 200 mls/hr 02/07/23 16:15 02/08/23 14:00 Sodium Chloride IV 02/17/23 16:14 Infused Q4H ANTHONY Infusion Ketorolac Tromethamine 15 mg 02/07/23 23:10 02/07/23 23:26 Ketorolac Tromethamine 15 Mg/Ml Vial IV 02/12/23 23:09 15 mg Q6H PRN Administration Pain or Fever
--- NOTE | 2023-02-08 16:34 | Magnetic Resonance Report ---
MRI OF THE BRAIN WITHOUT AND WITH IV CONTRAST CLINICAL HISTORY: Alt mental status, aseptic meningitis COMPARISON STUDY: Head CT February 07, 2023. TECHNIQUE: Utilizing a 1.5 Jocelin magnet and dedicated coil, multiplanar, multiecho imaging of the br ain was performed pre and postcontrast administration. IV administration of 8 mL of Gadavist contras t was uneventful. FINDINGS: This study is mildly compromised by motion artifact although is diagnostic. No acute intrac ranial hemorrhage, midline shift or mass effect is present. Brain volume is normal. Ventricular syste m is normal. Basal cisterns are patent. There are no extra-axial collections. Flow-voids for the moira r intracranial vessels are present. There is no intracranial mass or pathologic enhancement. No defin ite parenchymal signal abnormality is present. Calvarial signal is within normal limits. No evidence for sinusitis. IMPRESSION: 1. No acute intracranial findings. 2. No intracranial mass or pathologic enhancement. ACT 112: Negative or not required by law. Electronically signed by: Aden Araujo M.D. 02/08/2023 4:32 PM
[2023-02-08] MEDS: KETOROLAC TROMETHAMINE 15 MG/ML VIAL IV PRN (18:05)
[2023-02-09] MEDS: AMPICILLIN 2,000 MG in SODIUM CHLOR 0.9% MINI-B 100 ML IV SCH ×5 (04:11→19:28)
[2023-02-09] MEDS: KETOROLAC TROMETHAMINE 15 MG/ML VIAL IV PRN ×2 (04:19→19:24)
[2023-02-09 07:49] LABS: Basophils # (auto) 0.05 K/uL (0.00-0.20); Basophils % (auto) 0.7 %; Eosinophils # (auto) 0.05 K/uL (0.00-0.50); Eosinophils % (auto) 0.7 %; Hematocrit (blood only) 39.9 % (42.0-52.0); Hemoglobin 14.2 g/dl (14.0-18.0); Immature Granulocytes # (auto) 0.13 K/uL (0.01-0.20); Immature Granulocytes % (auto) 1.9 %; Lymphocytes # (auto) 1.37 K/uL (1.20-3.40); Lymphocytes % (auto) 20.5 %; Mean Corpuscular Hemoglobin 30.9 pg (25.0-34.0); Mean Corpuscular Hgb Conc 35.6 g/dL (32.0-36.0); Mean Corpuscular Volume 86.9 fL (80.0-100.0); Mean Platelet Volume 8.6 fL (9.4-12.4); Monocytes # (auto) 0.87 K/uL (0.11-0.59); Neutrophils # (auto) 4.22 K/uL (1.40-6.50); Neutrophils % (auto) 63.2 %; Platelet Count 247 K/uL (130-400); RDW Coefficient of Variation 12.5 % (11.5-14.5); Red Blood Count 4.59 M/uL (4.70-6.10); White Blood Count 6.69 K/ul (4.8-10.8)
[2023-02-09] MEDS ORDERED: VANCOMYCIN CONSULT ACTIVE PRN (07:51)
[2023-02-09 08:17] LABS: INR 1.2 (0.9-1.1); Prothrombin Time 12.6 Seconds (9.0-12.0)
[2023-02-09 08:39] LABS: Albumin Globulin Ratio 1.1 (0.9-2); Albumin Level 3.6 gm/dl (3.4-5.0); BUN Creatinine Ratio 13.5 (10-20); Bilirubin,Total 0.8 mg/dl (0.2-1.0); Calcium 8.3 mg/dl (8.6-10.3); Creatinine Clr Calc Pharmacy 83.2 ml/min; Est GFR (African American) 93.9 ml/min; Globulin 3.4 gm/dl (2.5-4.0); Magnesium 2.6 mg/dl (1.7-2.4); Potassium 3.7 mmol/L (3.5-5.1)
[2023-02-09] MEDS ORDERED: VANCOMYCIN HCL 2,000 MG in SODIUM CHLORIDE 0.9% 500 ML IV ONE (09:00)
--- NOTE | 2023-02-09 10:31 | Pharmacy Report ---
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 Blood cultures negative at 48h. CSF culture NGTD. Renal function stable. Received vancomycin 2250mg IV X 1 dose on 02/07 ~1700, and vancomycin resumed today. Day #1 of antimicrobial therapy. Plan Vancomycin * Loading dose: 2000 mg IV x 1 * Maintenance dose: 1000 mg IV every 12 hours * Regimen is predicted to achieve target AUC/JEREMIAH of 400-600 mg/L.hr * Will obtain a level around steady state if vancomycin continued. Pharmacy will continue to follow and will adjust dose/frequency as necessary. Thank you. Pharmacy has transitioned to AUC monitoring for vancomycin. AUC/JEREMIAH is the preferred PK/PD target and is associated with decreased risk of nephrotoxicity compared to traditional trough targets.
--- NOTE | 2023-02-09 12:13 | Hospitalist Progress Note ---
Date of Service February 09, 2023 Assessment & Plan (1) Acute metabolic encephalopathy: Plan: likely related to viral syndrome versus aseptic meningitis CSF studies so far unremarkable, some studies are still pending Infectious disease involved. Recommended discontinuing acyclovir 02/25 Continue ceftriaxone, ampicillin, vancomycin for possible meningitis. CSF studies pending EBV West Nile CSF pending, CSF VDRL pending Blood culture so far negative CSF culture so far negative Neurology involved MRI negative Clinically improving with improved headache, mentation (2) AMS (altered mental status): (3) Hyponatremia: Plan: -Sodium at 131 today Improved today Monitor (4) Transaminitis: Plan: -LFT's have been increasing since 02/03 -Patient denies abdominal discomfort and has benign abd exam -Denies recent alcohol use, AST/ALT ration does not indicate recent alcohol use -Has been alternating tylenol and ibuprofen for recent symptoms at home -Was perviously incarcerated so higher risk for possible hepatitis - hepatitis panel negative - liver ultrasound was negative -Avoid acetaminophen for now Most likely related to viral etiology (5) Hyperglycemia: Plan: -Glucose of 125 today, was 190 on 02/03 -No previous hx of DM - A1c was 6.6% - newly diagnosed diabetes mellitus May need to be discharged on oral hypoglycemic agent (6) HTN (hypertension): Plan: -Stable -Not currently on antihypertensives -Continue to monitor (7) Hyperlipidemia: Plan: -Not currently on a statin Admission and Anticipated Discharge Date Admission Date: February 07, 2023 Subjective Patient feeling better today. Headache down to a 4/10 intensity. He had spiked a fever last night. But feeling better overall. Review of Systems Review of Systems: All systems reviewed & are unremarkable except as noted in Subjective Physical Exam Physical Exam: general: Awake, conversant Heart: S1, S2/regular rate and rhythm, no murmur rubs or gallops Lungs: Clear to auscultation bilaterally. Normal effort Abdomen: Soft/nontender/nondistended. No hepatosplenomegaly Extremities: No clubbing/cyanosis. No edema Behavior: Appropriate, cooperative Results & Data Results & Data Vital Signs (Past 12 Hours) Vital Signs Temp Pulse Resp BP Pulse Ox O2 Del Method 02/09/23 11:20 36.8 C 85 16 155/95 H 99 Room Air 02/09/23 07:47 36.6 C 70 16 150/83 H 97 Room Air 02/09/23 05:38 37.2 C 02/09/23 03:51 38.0 C H 81 16 129/77 95 Room Air Laboratory Results Abnormal lab results 02/08/23 02/08/23 02/09/23 Range/Units 16:19 20:23 07:21 RBC 4.59 L (4.70-6.10) M/uL Hct 39.9 L (42.0-52.0) % MPV 8.6 L (9.4-12.4) fL [place] # (Auto) 0.87 H (0.11-0.59) K/uL PT 12.6 H (9.0-12.0) Seconds INR 1.2 H (0.9-1.1) Sodium 131 L (136-145) mmol/L Chloride 96 L (98-107) mmol/L Glucose 106 H (70-99(Fasting)) mg/dl POC Glucose 110 H 109 H (70-99) mg/dl Calcium 8.3 L (8.6-10.3) mg/dl Magnesium 2.6 H (1.7-2.4) mg/dl AST 67 H (13-39) U/L ALT 169 H (7-52) U/L Alkaline Phosphatase 133 H (34-104) U/L 02/09/23 Range/Units 11:04 RBC (4.70-6.10) M/uL Hct (42.0-52.0) % MPV (9.4-12.4) fL [place] # (Auto) (0.11-0.59) K/uL PT (9.0-12.0) Seconds INR (0.9-1.1) Sodium (136-145) mmol/L Chloride (98-107) mmol/L Glucose (70-99(Fasting)) mg/dl POC Glucose 162 H (70-99) mg/dl Calcium (8.6-10.3) mg/dl Magnesium (1.7-2.4) mg/dl AST (13-39) U/L ALT (7-52) U/L Alkaline Phosphatase (34-104) U/L PG Care Time/CCT Total # of Minutes Spent Total Time Spent with Patient: Total time spent is greater than 50% in coordination of care (as documented) at patient's floor/unit and/or counseling patient: Coding Level of Care Code 29299 SUB INP/OBS CARE MIN Diagnoses Acute metabolic encephalopathy G93.41 Altered mental status, unspecified altered mental status type R41.82 Altered mental status type: unspecified Hyponatremia E87.1 Transaminitis R74.01 Hyperglycemia R73.9 HTN (hypertension) I10 Hyperlipidemia E78.5 (2) AMS (altered mental status) Altered mental status type: unspecified Qualified Code(s): R41.82 - Altered mental status, unspecified
[2023-02-09 12:17] LABS: EBV DNA Quant PCR Not Detected copies/mL; EBV DNA Quant Source Whole Blood
[2023-02-09] MEDS: cefTRIAXone SODIUM 2,000 MG in DEXTROSE 5 % MINI-B 50 ML IV SCH ×2 (13:17→22:41)
[2023-02-09] MEDS ORDERED: SODIUM CHLORIDE 0.65% NA SOLN 45 ML (OCEAN) ONE (17:00)
[2023-02-09] MEDS ORDERED: VANCOMYCIN HCL 1,000 MG in SODIUM CHLORIDE 0.9% 250 ML IV SCH (21:00)
[2023-02-10] MEDS: AMPICILLIN 2,000 MG in SODIUM CHLOR 0.9% MINI-B 100 ML IV SCH ×3 (00:12→07:42)
[2023-02-10] MEDS: KETOROLAC TROMETHAMINE 15 MG/ML VIAL IV PRN ×3 (04:18→18:13)
[2023-02-10 07:41] LABS: Basophils # (auto) 0.08 K/uL (0.00-0.20); Basophils % (auto) 0.9 %; Eosinophils # (auto) 0.12 K/uL (0.00-0.50); Eosinophils % (auto) 1.3 %; Hematocrit (blood only) 38.8 % (42.0-52.0); Immature Granulocytes # (auto) 0.13 K/uL (0.01-0.20); Immature Granulocytes % (auto) 1.4 %; Lymphocytes # (auto) 1.64 K/uL (1.20-3.40); Lymphocytes % (auto) 17.7 %; Mean Corpuscular Hemoglobin 31.1 pg (25.0-34.0); Mean Corpuscular Hgb Conc 36.1 g/dL (32.0-36.0); Mean Corpuscular Volume 86.2 fL (80.0-100.0); Mean Platelet Volume 8.5 fL (9.4-12.4); Monocytes # (auto) 1.08 K/uL (0.11-0.59); Monocytes % (auto) 11.7 %; Platelet Count 295 K/uL (130-400); RDW Coefficient of Variation 12.6 % (11.5-14.5); RDW Standard Deviation 40.1 fL (36.4-46.3); White Blood Count 9.25 K/ul (4.8-10.8)
[2023-02-10 08:01] LABS: Albumin Globulin Ratio 1.1 (0.9-2); Albumin Level 3.7 gm/dl (3.4-5.0); BUN Creatinine Ratio 15.5 (10-20); Bilirubin,Total 0.8 mg/dl (0.2-1.0); Calcium 8.4 mg/dl (8.6-10.3); Creatinine Clr Calc Pharmacy 88.6 ml/min; Est GFR (African American) 102.2 ml/min; Est GFR (Non-African American) 88.1 ml/min; Globulin 3.3 gm/dl (2.5-4.0); INR 1.1 (0.9-1.1); Magnesium 2.5 mg/dl (1.7-2.4); Potassium 3.9 mmol/L (3.5-5.1); Prothrombin Time 12.2 Seconds (9.0-12.0)
--- NOTE | 2023-02-10 13:14 | Hospitalist Progress Note ---
Date of Service February 10, 2023 Assessment & Plan (1) Acute metabolic encephalopathy: Plan: encephalopathy has resolved Headache improved Most likely of viral meningitis as all CSF studies are coming back negative CSF cultures negative. Discontinue IV vancomycin, ceftriaxone and ampicillin ID involved EBV West Nile CSF pending, CSF VDRL pending Blood cultures so far negative MRI negative Clinically improving with improved headache, fever and mentation (2) Hyponatremia: Plan: sodium improved at 131 Continue to monitor (3) Transaminitis: Plan: -LFT's clinically trending down Most likely viral in etiology Acute hepatitis panel negative -Patient denies abdominal discomfort and has benign abd exam -Denies recent alcohol use, AST/ALT ration does not indicate recent alcohol use (4) Hyperglycemia: Plan: A1c 6.6 New diagnosis of diabetes mellitus We will need an oral hypoglycemic agent eventually (5) HTN (hypertension): Plan: -Stable -Not currently on antihypertensives -Continue to monitor (6) Hyperlipidemia: Plan: -Not currently on a statin Admission and Anticipated Discharge Date Admission Date: February 07, 2023 Subjective patient Says that he still has a dull headache. No more fever today Review of Systems Review of Systems: All systems reviewed & are unremarkable except as noted in Subjective Physical Exam Physical Exam: general: Awake, conversant Heart: S1, S2/regular rate and rhythm, no murmur rubs or gallops Lungs: Clear to auscultation bilaterally. Normal effort Abdomen: Soft/nontender/nondistended. No hepatosplenomegaly Extremities: No clubbing/cyanosis. No edema Behavior: Appropriate, cooperative Results & Data Results & Data Vital Signs (Past 12 Hours) Vital Signs Temp Pulse Pulse Resp BP Pulse Ox O2 Del Method 02/10/23 11:24 37.0 C 81 18 139/82 95 Room Air 02/10/23 07:45 Room Air 02/10/23 07:39 36.8 C 68 16 133/89 99 Room Air 02/10/23 07:23 64 02/10/23 03:00 37.2 C 73 16 144/83 H 96 Room Air PG Care Time/CCT Total # of Minutes Spent Total Time Spent with Patient: Total time spent is greater than 50% in coordination of care (as documented) at patient's floor/unit and/or counseling patient: Coding Level of Care Code 90666 SUB INP/OBS CARE 2/35MIN Diagnoses Acute metabolic encephalopathy G93.41 Hyponatremia E87.1 Transaminitis R74.01 Hyperglycemia R73.9 HTN (hypertension) I10 Hyperlipidemia E78.5
[2023-02-10] MEDS ORDERED: oxyCODONE HCL IR 5 MG TAB (IMMEDIATE RELEASE) PO STA ×2 (13:57→23:36)
[2023-02-10 23:47] LABS: Cryptococcal Antigen Not Detected (Not Detected); Source CSF
[2023-02-11 03:06] LABS: Babesia microti DNA Not Detected (Not Detected)
[2023-02-11] MEDS: KETOROLAC TROMETHAMINE 15 MG/ML VIAL IV PRN (05:43)
--- NOTE | 2023-02-11 09:54 | Infectious Disease Progress Nt ---
Date of Service February 11, 2023 Assessment & Plan (1) Elevated liver function tests: (2) Encephalopathy acute: (3) Aseptic meningitis: Plan Micro: 02/07 CSF -Gram stain neg, culture NG -Cell counts: WBC 9, RBC 4 -Glucose 41 -Protein 139.4 -Meningitis PCR panel: negative -Lyme IgG, IgM: pending -Lyme PCR: pending -VDRL pending -West Nile IgM: pending -CSF CrAg: neg 02/07 BCx x2: NGTD 02/07 RVP neg 02/07 Anaplasma/Babesia smear: neg 02/07 Babesia PCR neg 02/07 Lyme screen: neg 02/07 EBV PCR: neg 02/07 HAV IgM, HBsAg, HBc IgM, HCV Ab nonreactive 02/07 HIV screen: nonreactive 02/03 RVP neg 02/03 Anaplasma/Babesia smear: neg 02/03 Anaplasma PCR: neg 02/03 Babesia PCR neg 02/03 Ehrlichia chaffeensis PCR: neg 02/03 Lyme screen: neg 02/03 Q fever Ab: negative 02/03 Rickettsia IgG, IgM neg 02/03 Typhus fever IgG, IgM neg Abx: Ceftriaxone 02/07- 02/09 Vanco 02/07 - 02/09 Acyclovir 02/07- 02/08 Ampicillin 02/07 - 02/10 Problems: #Headaches #Nasal congestion #? meningitis; signs of mild meningeal inflammation with wbc of 9 (but no diff), he did receive abx prior to LP - unclear if this decreased yield #Elevated LFTs 52 yo male with HTN, HLD, remote alcohol abuse who presents on 02/07 with fever and headache, now admitted with c/f meningitis. He initially presented on 02/03 with acute onset of headache for 24 hours associated with nasal congestion, sinus pressure, body aches. ED labs at the time notable for Na 125, transaminitis. His RVP, Lyme screen were negative. He was discharged with doxycycline. He returned on 02/07 with persistent symptoms, at which time VSS, with labs showing WBC 5.74, AST 52, ALT 125, alk phos 120, ESR 28, CRP 7.75, procal 0.29. CXR, CT head negative. Liver US shows hepatis steatosis. He denies travel, oral lesions/cold sores, genital lesions, tick bites, bird or mouse exposure, cough, rash, change in urine or bowel habits, chest pain. 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 He has 2 healthy cats. He complains of sinus congestion, fatigue, headache, photophobia. He was started on empiric vanc, ceftriaxone, ampicillin, acyclovir for meningitis prior to an LP later that day which was clear with 9 WBC, 4 RBC, Glucose 41, protein 139.4. Meningitis/encephalitis PCR panel was negative. RVP negative. Anaplasma/Babesia smear neg, Babesia PCR neg, Lyme serology neg. Rickettsia, Q fever, Typhus fever Ab negative from 02/03. Acute hepatitis serologies and HIV negative. MRI brain negative with no acute intracranial findings. The low WBC count in the CSF is not suggestive of a bacterial meningitis. CSF gram stain and culture have finalized as negative, and meningitis/encephalitis PCR panel is negative. Perhaps pt may have had a viral meningitis. 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 Can follow-up CSF West Nile IgM as outpatient--would not have any specific treatment for this. -Can follow-up CSF VDRL, serum RPR as outpatient. Discussed with hospitalist. Will sign off. Please re-consult if any of the above testing becomes positive. Please page [facility] with further questions. Admission and Anticipated Discharge Date Admission Date: February 07, 2023 Subjective This patient recommendation is based on a telemedicine consult request which was completed asynchronously through chart review and information provided by the primary physician. The patient was not seen or examined today. The evaluation is consultative in nature and all patient care and treatment decisions can either be accepted or rejected by the patient's primary hospital-based treating physician using their own independent medical judgment for their patient. Time Spent Reviewing Chart: 31+ minutes Pt reportedly feeling improved, still with some headache Last fever on 02/09 AST/ALT slightly down from yesterday Review of System Pt was not seen Physical Exam Physical Exam: Pt was not seen Results & Data Vital Signs (Past 12 Hours) Vital Signs Temp Pulse Pulse Resp BP Pulse Ox O2 Del Method 02/11/23 09:00 70 02/11/23 07:58 36.3 C L 68 18 133/90 98 Room Air 02/11/23 02:38 36.6 C 73 20 132/83 97 Room Air 02/10/23 23:03 60 02/10/23 22:54 36.5 C 62 16 157/91 H 99 Room Air Diagnostic Findings Brain MRI 02/08/23 11:22 MRI OF THE BRAIN WITHOUT AND WITH IV CONTRAST CLINICAL HISTORY: Alt mental status, aseptic meningitis COMPARISON STUDY: Head CT February 07, 2023. TECHNIQUE: Utilizing a 1.5 Jocelin magnet and dedicated coil, multiplanar, multiecho imaging of the brain was performed pre and postcontrast administration. IV administration of 8 mL of Gadavist contrast was uneventful. FINDINGS: This study is mildly compromised by motion artifact although is diagnostic. No acute intracranial hemorrhage, midline shift or mass effect is p resent. Brain volume is normal. Ventricular system is normal. Basal cisterns are patent. There are no extra-axial collections. Flow-voids for the major intracranial vessels are present. There is no intracranial mass or pathologic enhancement. No definite parenchymal signal abnormality is present. Calvarial signal is within normal limits. No evidence for sinusitis. IMPRESSION: 1. No acute intracranial findings. 2. No intracranial mass or pathologic enhancement. ACT 112: Negative or not required by law. Electronically signed by: Aden Araujo M.D. 02/08/2023 4:32 PM Orbit X-Ray 02/08/23 11:43 ORBIT RADIOGRAPHS 3 VIEWS HISTORY: pre-MRI screening. COMPARISON: Head CT February 07, 2023. FINDINGS: There are no radiopaque foreign bodies identified within the orbits. IMPRESSION: No radiopaque foreign bodies identified within the orbits. ACT 112: Negative or not required by law. Electronically signed by: Aden Araujo M.D. 02/08/2023 2:04 PM Medications Administered Current Inpatient Medications Ketorolac Tromethamine (Ketorolac Tromethamine 15 Mg/Ml Vial) 15 mg IV Q6H PRN PRN Reason: Pain or Fever Stop: 02/12/23 23:09 Last Admin: 02/11/23 05:43 Dose: 15 mg
[2023-02-11] MEDS ORDERED: IBUPROFEN 200 MG TAB PO PRN (13:13)
--- NOTE | 2023-02-11 13:18 | Hospitalist Progress Note ---
Date of Service February 11, 2023 Assessment & Plan (1) Acute metabolic encephalopathy: Plan: encephalopathy has resolved Headache improved Most likely of viral meningitis as all CSF studies are coming back negative CSF cultures negative. Discontinued IV vancomycin, ceftriaxone and ampicillin ID involved EBV West Nile CSF pending, CSF VDRL pending Blood cultures so far negative MRI negative Clinically improving with fever Resolved and mentation back to baseline Still has some headache requiring IV Toradol We will discontinue IV Toradol and switch to p.o. ibuprofen as needed pain If headache remains controlled with p.o. ibuprofen, can discharge him tomorrow and by then hopefully the rest of the CSF studies will be back and negative. (2) Hyponatremia: Plan: sodium improved at 131 Continue to monitor (3) Transaminitis: Plan: -LFT's clinically trending down Most likely viral in etiology Acute hepatitis panel negative -Patient denies abdominal discomfort and has benign abd exam -Denies recent alcohol use, AST/ALT ration does not indicate recent alcohol use (4) Hyperglycemia: Plan: A1c 6.6 New diagnosis of diabetes mellitus We will need an oral hypoglycemic agent eventually (5) HTN (hypertension): Plan: -Stable -Not currently on antihypertensives -Continue to monitor (6) Hyperlipidemia: Plan: -Not currently on a statin Admission and Anticipated Discharge Date Admission Date: February 07, 2023 Subjective No more fever spikes since 02/09 at 3:50 PM. But patient continues with some headaches requiring IV Toradol. Review of Systems Review of Systems: All systems reviewed & are unremarkable except as noted in Subjective Physical Exam Physical Exam: general: Awake, conversant Heart: S1, S2/regular rate and rhythm, no murmur rubs or gallops Lungs: Clear to auscultation bilaterally. Normal effort Abdomen: Soft/nontender/nondistended. No hepatosplenomegaly Extremities: No clubbing/cyanosis. No edema Behavior: Appropriate, cooperative Results & Data Results & Data Vital Signs (Past 12 Hours) Vital Signs Temp Pulse Pulse Resp BP Pulse Ox O2 Del Method 02/11/23 11:29 36.7 C 60 20 139/90 97 Room Air 02/11/23 09:00 70 02/11/23 07:58 36.3 C L 68 18 133/90 98 Room Air 02/11/23 02:38 36.6 C 73 20 132/83 97 Room Air PG Care Time/CCT Total # of Minutes Spent Total Time Spent with Patient: Total time spent is greater than 50% in coordination of care (as documented) at patient's floor/unit and/or counseling patient: Coding Level of Care Code 82779 SUB INP/OBS CARE 2/35MIN Diagnoses Acute metabolic encephalopathy G93.41 Hyponatremia E87.1 Transaminitis R74.01 Hyperglycemia R73.9 HTN (hypertension) I10 Hyperlipidemia E78.5
[2023-02-12 18:02] LABS: Lyme DNA PCR CSF or Synovial Not Detected (Not Detected); Lyme DNA Source CSF; VDRL Qualitative CSF Nonreactive (Nonreactive)
--- NOTE | 2023-02-12 19:18 | Discharge Summary ---
Date of Service February 12, 2023 Admission HPI Per Admitting Provider Pro is a 52 year old male with a PMH significant for alcohol abuse, HTN, and hyperlipidemia who presented to the [facility] ED on 02/07 with his for AMS and fever of 103F at home. Per chart review, the patient presented to the [facility] ED on 02/03 with complaints of headache, congestion, fevers, and body aches. Labs from that visit were significant for a lymphopenia of 0.54, glucose of 190, corrected sodium of 126, chloride of 92, phos of 2.1, total bili of 1.1 with AST of 69 and ALT of 118. UA and full respiratory were unremarkable. Lyme IgG and IgM Ab were negative and anaplasmosis/Babesia have been negative to this point. The patient was given IV fluids, doxycycline, tylenol, and toradol with reported improvement in all symptoms. Because of this the patient and his were comfortable with discharge home on empiric Doxycycline and sodium bicarbonate tabs. EMS reported that the patient was noted to be febrile on arrival at 103F today, he was given 1gm IV Tylenol by EMS in route. On arrival to the ED he was noted to be stable. Labs Labs were significant for WBC WNL, stable Hgb and platelets, lymphocyte count of 0.61, ESR of 28, VBG pH of 7.55 with pCO2 22 with pO2 of 78, sodium of 125, biacarb of 20, chloride of 96, calcium of 7.7 with albumin WNL, total bili of 1.3, direct bili of 0.5, AST of 52, ALT of 125, alk phos of 120, CRP of 7.75, negative UA, tox screen, and alcohol level, and n egative full respiratory biofire. CT of the head was negative for acute findings. Chest xray was read as "1. Cardiomegaly with mild congestive change. 2. No focal lung consolidations.". The patient was given 2L NSS, 2gm IV Ativan, and a dose of 2gm Ceftriaxone, 2gm Ampicillin, a dose of Vancomycin, and a dose of Acyclovir with improvement in symptoms but without resolution. At the time of the exam the patient was lying in bed in no acute distress with his and sister sitting bedside, history was obtained from all. The patient's confirms that the patient was taking the PO doxycycline and Sodium bicarbonate tabs as prescribed on ED discharge. Unfortunately he continued to decline clinically and cognitively. He was complaining of headache/head pressure, photophobia, myalgias, BL knee pain, scrotal pain, and ambulatory dysfunction due to pain. His states that he has had very little to eat since last ED evaluation but has been drinking lots of water to try and stay hydrated. She confirms that he is NOT on hydrochlorothiazide at home. He has a previous history of heavy alcohol use (5+ beers daily), but his family confirms that he stopped drinking approximately 1.5 years ago. He does not currently use recreational drugs but did use marijuana and huffed paint 20+ years ago. His states that the patient was jailed multiple times, approximately 20 years ago, for multiple DUI's. His and the patient deny the patient having a hx of IV drug use in the past and a previous hx of hepatitis. The patient is much more alert and oriented than arrival at the time of my exam. He states that he is feeling much improved compared to ED arrival but is still having weakness, mild headache, myalgias, and BL knee pain. He denies current headache, photophobia, changes in vision, hearing, taste, smell, neck pain/stiffness, back pain, paresthesias, auditory, tactile, and visual hallucinations, unilateral weakness, chest pain, SOB, cough, hemoptysis, abd pain, nausea, vomiting, diarrhea, dysuria, hematuria, melena, bright blood in stool, LE swelling, rashes, recent insect bites/stings, and recent trauma. He is a full code and wishes for his to make medical decisions for him if he cannot make them himself. Discussed with the patient and his the need to obtain LP with IR as attempts by the ED were unsuccessful, the patient and his are in agreement with proceeding. The patient also gave consent for HIV testing as part of his infectious workup. Please refer to Dr. Rivas's attestation for any changes to the treatment plan Principal Diagnosis Viral meningitis Discharge Exam general: Awake, conversant Heart: S1, S2/regular rate and rhythm, no murmur rubs or gallops Lungs: Clear to auscultation bilaterally. Normal effort Abdomen: Soft/nontender/nondistended. No hepatosplenomegaly Extremities: No clubbing/cyanosis. No edema Behavior: Appropriate, cooperative Constitutional well developed and well nourished; no acute distress Eyes normal visual gan by confrontation, PERRL and EOM intact bilaterally Discharge Data Allergies Allergy/AdvReac Type Severity Reaction Status Date / Time No Known Allergies Allergy NKA Verified 02/07/23 10:45 Consultations 02/07/23 11:55 ED Decision to Admit Stat 02/07/23 17:04 Consult Neurology Routine 02/08/23 07:35 Consult Infectious Diseases Routine Ordered Studies 02/07/23 09:02 CT head/brain wo con Stat 02/07/23 12:00 IR lumbar puncture diagnostic Routine 02/07/23 14:24 US liver Routine 02/08/23 11:22 MRI Brain [MR brain wo/w con] Routine Hospital Course (1) Acute metabolic encephalopathy: encephalopathy has resolved Most likely of viral meningitis as all CSF studies are coming back negative CSF cultures negative. Discontinued IV vancomycin, ceftriaxone and ampicillin ID involved EBV West Nile CSF pending, CSF VDRL pending Blood cultures so far negative MRI negative Clinically improving with fever Resolved and mentation back to baseline Still has some headache requiring IV Toradol We will discontinue IV Toradol and switch to p.o. ibuprofen as needed pain Headache was resolved, patient was discharged home, pending serology test for VDRL and RPR, West Nile virus, Patient agreed to follow-up with PCP (2) New onset type 2 diabetes mellitus: A1c of6.6, patient is to follow-up with PCP, patient may require to start an oral hypoglycemic agent (3) Hyponatremia: sodium improved at 131 BMP after 1 week, possibly secondary to SIADH due to Meningitis (4) Transaminitis: -LFT's clinically trending down Most likely viral in etiology Acute hepatitis panel negative -Patient denies abdominal discomfort and has benign abd exam -Denies recent alcohol use, AST/ALT ration does not indicate recent alcohol use (5) Hyperglycemia: A1c 6.6 New diagnosis of diabetes mellitus We will need an oral hypoglycemic agent eventually (6) HTN (hypertension): -Stable -Not currently on antihypertensives -Continue to monitor (7) Hyperlipidemia: -Not currently on a statin Total Time Total Time Spent Total Time Spent (In Minutes): 45 mins Discharge Plan Discharge Items Patient Disposition: Home - Self-Care Reason For Visit: AMS, FEVERS Discharge Diagnosis: viral meningitis Activity: Resume your previous activity Lifting: Gradually increase as tolerated Bathing: No limitations Non-emergency contact: Primary Care Provider Call non-emergency contact if: your symptoms worsen Follow-up/Referrals: Abhijit Alexis, [Primary Care Provider] - Diet: Regular Addtl Attending Provider Instructions: Please follow with your primary care doctor in 2-3 weeks for pending Lab test (CSF West Nile IgM , CSF VDRL, serum RPR). Pending Studies at Discharge: No Stand-Alone Forms[facility] Medications and DC Order Prescriptions: Continued multivitamin Tablet 1 tab PO DAILY pyridoxine (vitamin B6) [Vitamin B-6] 25 mg Tablet 0 mg PO DAILY Qty: 0 Rx Instructions: Spouse unsure of strength of medication, pt unavailable for interview milk thistle 140 mg Capsule 0 mg PO DAILY Qty: 0 Rx Instructions: Spouse unsure of strength of medication, pt unavailable for interview vitamin E 400 unit Capsule 0 unit PO DAILY Rx Instructions: Spouse unsure of strength of medication, pt unavailable for interview ginkgo biloba Tablet 0 mg PO DAILY Qty: 0 Rx Instructions: Spouse unsure of strength of medication, pt unavailable for interview cholecalciferol (vitamin D3) [Vitamin D3] 10 mcg (400 unit) Capsule 0 mcg PO DAILY Qty: 0 Rx Instructions: Spouse unsure of strength of medication, pt unavailable for interview cyanocobalamin (vitamin B-12) Tablet,Chewable 0 tab PO DAILY Qty: 0 Rx Instructions: Spouse unsure of strength of medication, pt unavailable for interview sodium bicarbonate 650 mg tablet 650 mg PO BID Qty: 14 0RF Rx Instructions: Start Date 02/03/23 - End Date 02/10/23 Discontinued doxycycline hyclate 100 mg tablet 100 mg PO BID 14 Days Qty: 28 0RF Rx Instructions: Start Date 02/03/23 - End Date 02/17/23 Discharge Orders: Discharge Order (Routine); Ordered 02/12/23 Ordered By: Wesly Arevalo Admission Data Admit Date/Time: 02/07/23 12:48 Attending Provider: Wesly Arevalo Admit Provider: Pro Rivas Primary Care Provider: Abhijit Alexis Other Providers: Pro Rivas; Fermin Niño; Tato Alexander Other Interventions: Discharge Summary Assessment (RN) Last Done: 02/12/23 12:16 Coding Level of Care Code 56910 INP/OBS DISCH >30 MIN Diagnoses Acute metabolic encephalopathy G93.41 New onset type 2 diabetes mellitus E11.9 Hyponatremia E87.1 Transaminitis R74.01 Hyperglycemia R73.9 HTN (hypertension) I10 Hyperlipidemia E78.5
[2023-02-13 12:37] LABS: Lyme IgG Band Pattern CSF DNR; Lyme IgG CSF NO BANDS DETECTED; Lyme IgM Band Pattern CSF DNR; Lyme IgM CSF NO BANDS DETECTED
== END 2023-02-12 12:51 | disposition home or self-care (01) | DRG 97 ==
LOC: ED 08:51 → 2S 12:48 → SUATTDRO 12:48 → 2S 19:43

== ENCOUNTER 2024-09-28 14:05 | Inpatient (IN) ==
--- NOTE | 2024-09-28 14:39 | XRay Report ---
XR chest 1V not portable CLINICAL HISTORY: Chest pain, nonspecific COMPARISON STUDY: 08/29/2023 FINDINGS: Heart size and pulmonary vasculature are normal. No consolidation or pleural effusion. No p neumothorax. IMPRESSION: No acute findings. ACT 112: Negative or not required by law. Electronically signed by: Pablo Yen M.D. 09/28/2024 2:38 PM
[2024-09-28 14:55] LABS: Basophils # (auto) 0.04 K/uL (0.00-0.20); Basophils % (auto) 0.6 %; Eosinophils # (auto) 0.05 K/uL (0.00-0.50); Eosinophils % (auto) 0.8 %; Hematocrit (blood only) 42.7 % (42.0-52.0); Hemoglobin 14.7 g/dl (14.0-18.0); Immature Granulocytes # (auto) 0.02 K/uL (0.01-0.20); Immature Granulocytes % (auto) 0.3 %; Lymphocytes # (auto) 1.77 K/uL (1.20-3.40); Lymphocytes % (auto) 26.7 %; Mean Corpuscular Hemoglobin 30.5 pg (25.0-34.0); Mean Corpuscular Hgb Conc 34.4 g/dL (32.0-36.0); Mean Corpuscular Volume 88.6 fL (80.0-100.0); Mean Platelet Volume 8.5 fL (9.4-12.4); Monocytes # (auto) 0.64 K/uL (0.11-0.59); Monocytes % (auto) 9.6 %; Neutrophils # (auto) 4.12 K/uL (1.40-6.50); Platelet Count 240 K/uL (130-400); RDW Coefficient of Variation 12.4 % (11.5-14.5); RDW Standard Deviation 40.5 fL (36.4-46.3); Red Blood Count 4.82 M/uL (4.70-6.10); White Blood Count 6.64 K/ul (4.8-10.8)
[2024-09-28 15:08] LABS: Partial Thromboplastin Time 26 Seconds (21-31); Prothrombin Time 10.5 Seconds (9.0-12.0)
[2024-09-28 15:24] LABS: Albumin Level 4.8 gm/dl (3.4-5.0); Bilirubin,Total 0.5 mg/dl (0.2-1.0); Calcium 9.5 mg/dl (8.6-10.3); Magnesium 2.2 mg/dl (1.7-2.4)
[2024-09-28 15:30] LABS: Albumin Globulin Ratio 1.8 (0.9-2); BUN Creatinine Ratio 16.2 (10-20); Creatinine Clr Calc Pharmacy 81.4 ml/min; Globulin 2.7 gm/dl (2.5-4.0); Total Protein 7.5 gm/dl (6.0-8.3)
[2024-09-28 15:49] LABS: Troponin I High Sensitivity 354.8 pg/ml (0-20)
[2024-09-28] MEDS: ASPIRIN 81 MG CHEW PO STA (15:59)
[2024-09-28] MEDS: METOPROLOL TARTRATE 1 MG/ML VIAL IV STA (16:38)
--- NOTE | 2024-09-28 16:46 | History & Physical Report ---
Date of Service September 28, 2024 Assessment & Plan (1) NSTEMI (non-ST elevated myocardial infarction): (2) New onset type 2 diabetes mellitus: (3) Hyperlipidemia: (4) HTN (hypertension): Plan #angina/NSTEMIfairly characteristic symptoms, risks including male, age, hypertension, hyperlipidemia, diabetes; troponin of about 350. Trend troponin, get echocardiogram. Med management with heparin drip, metoprolol, aspirin, atorvastatin. Long-term and anticipate initiation of DAHIANA inhibitor as well. Consult cardiology to discuss cath #hypertensionmetoprolol. Anticipate initiating DAHIANA inhibitor. #Hyperlipidemiaatorvastatin 80 especially given the MRI. Check lipid panel in AM. #Type 2 diabetescheck A1c. Hold metformin due to probability of dye load with [facility]. fingersticks and supplemental insulin as needed #DVT proph - will be on heparin gtt. History of Present Illness Chief Complaint: Chest pain Primary Care Provider: Abhijit Alexis, DO very pleasant 54-year-old male who woke up this morning and then had substernal chest pain radiating to his left armstarted whenever he was getting ready to leave the house. Lasted for 5-10 minutes and very intensely to where he thought about coming to the ER then, but after that the pain started to let up some. He notes it is still there now it is just not nearly as intense as what it was. He also notes a preceding fatigue over the last 1-2 months that he could not otherwise explain. He still currently has a degree of chest pressure, but it is extremely mild compared to previous. Allergies Allergy/AdvReac Type Severity Reaction Status Date / Time No Known Allergies Allergy NKA Verified 01/03/24 16:13 Home Medications Medication Instructions Recorded Confirmed Type cholecalciferol (vitamin D3) 10 0 mcg PO DAILY ##0 10/26/19 09/28/24 History mcg (400 unit) capsule (Vitamin D3) cyanocobalamin (vitamin B-12) 0 tab PO DAILY ##0 10/26/19 09/28/24 History milk thistle 140 mg capsule 0 mg PO DAILY ##0 10/26/19 09/28/24 History pyridoxine (vitamin B6) 25 mg 0 mg PO DAILY ##0 10/26/19 09/28/24 History tablet (Vitamin B-6) Past Med/Surg History Problem List (Updated 09/28/24 @ 16:43 by Jerry Brandon DO) NSTEMI (non-ST elevated myocardial infarction) Cervical spinal stenosis Focal motor neuropathy Left arm weakness New onset type 2 diabetes mellitus Hyperlipidemia HTN (hypertension) Encounter for pre-operative examination No significant past surgical history No significant past medical history Medical History (Updated 09/28/24 @ 16:43 by Jerry Brandon DO) Acute metabolic encephalopathy Acute urinary retention Aseptic meningitis Fatty liver Hearing loss in left ear History of manic depressive disorder Surgical History History of placement of ear tubes History of eye surgery History of colonoscopy Family History Father Diabetes Brother Diabetes Sister No problems noted. Other No family history of adverse response to anesthesia Social History Smoking Status: Never smoker Tobacco Type: Smokeless Tobacco (Dip or Chew) Second Hand Exposure: No; Do You Dip or Chew Tobacco: Yes; Hx Alcohol Use: No Hx Substance Use: No Preferred Language: Nepali Communication Ability: Effective Behavioral Technician Required: No Beliefs That Will Affect Care: None marital status: Current Living Situation: Spouse current occupational status: employed Feels Safe at Home: Yes Assistive Devices: None Review of Systems Review of Systems: All systems reviewed & are unremarkable except as noted in HPI & below Physical Exam Physical Exam: General he is awake alert oriented pleasant no distress. HEENT normocephalic atraumatic mucous membranes moist. Lungs clear to auscultation bilaterally no rales rhonchi or wheezes good effort. Cardio is regular without rubs murmurs gallops. Abdomen soft nondistended nontender no masses or organomegaly no epigastric tenderness to palpation. Extremities without sinus clubbing or edema no calf tenderness. Neuro shows cranial nerves II through XII are grossly intact gross motor and sensory intact. Results & Data Results & Data Vital Signs (Past 12 Hours) Vital Signs Temp Pulse Pulse Resp BP BP Pulse Ox 09/28/24 16:38 78 167/106 H 09/28/24 16:27 86 09/28/24 16:13 83 18 144/90 H 97 09/28/24 15:42 95 H 22 146/85 H 97 09/28/24 14:10 97.9 F 97 H 16 170/96 H 97 O2 Del Method 09/28/24 16:38 09/28/24 16:27 09/28/24 16:13 Room Air 09/28/24 15:42 09/28/24 14:10 Room Air Code Status & VTE Plan VTE Prophylaxis Plan VTE Prophylaxis will be ordered: Yes PG Care Time/CCT Total # of Minutes Spent Total Time Spent with Patient: Total time spent is greater than 50% in coordination of care (as documented) at patient's floor/unit and/or counseling patient: Coding Level of Care Code 86451 INT INP/OBS CARE MIN Diagnoses NSTEMI (non-ST elevated myocardial infarction) I21.4 New onset type 2 diabetes mellitus E11.9 Hyperlipidemia E78.5 HTN (hypertension) I10
[2024-09-28] MEDS: HEPARIN 25000 UNIT/500 ML D5W 25,000 UNITS/500 ML BAG IV SCH (16:48)
[2024-09-28] MEDS: HEPARIN SOD (PORCINE) 1000 UNIT/ML IV ONE (16:50)
[2024-09-28] MEDS: Heparin IV Adult Wt-Based Standard w/ INITIAL Bolus Protocol IV STA (16:56)
--- NOTE | 2024-09-28 16:56 | Emergency Department Note ---
Impression & Plan NSTEMI (non-ST elevated myocardial infarction) ED Provider Note NAME: BENOIT BUNCH AGE: 54 SEX: M : 1970 ARRIVES VIA: Walk-In INFORMANT: Patient, ED PROVIDER(S): Saray Ventura MD CHIEF COMPLAINT: Chest pain HPI: This is a 54-year-old male presenting for chest pain. Patient states that he woke up this morning and was going down the stairs around 5:30 AM. He notes that upon going upstairs he had sudden onset chest pain. He notes it took his breath away. He no radiation of pain to the back. No tearing sensation. Mentioned that it felt sharp the pain when to his arm. He had had some intermittent left arm numbness as well. He notes continued chest pain however resolving after few minutes. He still a persistent low-grade pain throughout his chest and arm throughout the day. He reports he went to work and exertion did not worsen or improve his symptoms. No current shortness of breath. ROS: See above HPI for pertinent positives & negatives. A total of 10 systems reviewed and were otherwise negative. PAST MEDICAL HISTORY: See Below PAST SURGICAL HISTORY: See Below FAMILY HISTORY: See Below SOCIAL HISTORY: See Below HOME MEDICATIONS: See Below ALLERGIES: See Below VITALS: See Below PHYSICAL EXAMINATION: General: resting comfortably in no acute distress Head: Normocephalic and atraumatic Eyes: Normal inspection, extraocular muscles intact Ear, nose, throat: Normal external exam Neck: Normal range of motion Respiratory: lungs clear to auscultation bilaterally Cardiovascular: Regular rate/rhythm, no murmur GI: soft, nontender, no guarding or rebound Extremities: nontender, moves all extremities Neuro: The patient awake and alert, appropriately conversive, no focal deficits, symmetric faces Skin: Warm, dry, and intact MEDICAL DECISION MAKING: This is a 54-year-old male presenting for chest pain. Based on description of pain, consider ACS. Low concern for PE or dissection clinically. Patient has 2+ pulses in all extremities. No hypoxia or tachycardia suggest PE. - ECG independently interpreted by me with normal sinus rhythm, rate of 83, normal axis, normal AK, normal QRS, normal QTc, no ST segment elevations consistent with STEMI criteria, T wave inversion in lead III - Bloodwork is reviewed showing no significant leukocytosis, anemia, electrolyte or creatinine abnormality -My assessment and the results of testing completed here in the ED were discussed with the patient/family. All questions were answered, and they expressed understanding of my assessment and the plan. They have been instructed to return if symptoms worsen, and they have been asked to follow up with their PCP to recheck today's presenting complaint. - For troponin is elevated at 354. Based on patient's continued chest pain, give aspirin and admit the patient for NSTEMI. - Second troponin reveals downtrending troponin, now 321. - Discussed with Dr. Brandon for admission Differential diagnosis: ACS, NSTEMI, PE, pneumonia Independent History obtained from: Diagnostics interpreted by me: ECG: See above Cardiac Monitoring: An order was placed for continuous cardiac monitoring. The monitor shows a rate of 66 with sinus rhythm. Past Med/Surg History Problem List (Updated 09/28/24 @ 21:10 by Saray Ventura MD) NSTEMI (non-ST elevated myocardial infarction) (Acute) Cervical spinal stenosis Focal motor neuropathy Left arm weakness New onset type 2 diabetes mellitus Hyperlipidemia HTN (hypertension) Encounter for pre-operative examination No significant past surgical history No significant past medical history Medical History (Updated 09/28/24 @ 21:10 by Saray Ventura MD) Acute metabolic encephalopathy Acute urinary retention Aseptic meningitis Fatty liver Hearing loss in left ear History of manic depressive disorder Surgical History History of placement of ear tubes History of eye surgery History of colonoscopy Family History Father Diabetes Brother Diabetes Sister No problems noted. Other No family history of adverse response to anesthesia Social History Smoking Status: Never smoker Tobacco Type: Smokeless Tobacco (Dip or Chew) Second Hand Exposure: No; Do You Dip or Chew Tobacco: Yes; Hx Alcohol Use: No Hx Substance Use: No Preferred Language: [place] Verdean Communication Ability: Effective Weigher Alloy Required: No Beliefs That Will Affect Care: None marital status: Current Living Situation: Spouse current occupational status: employed Other Information That Helps Us Care for You: No Feels Safe at Home: Yes Safety Concerns: Feels Safe At This Time Assistive Devices: Glasses Allergies Allergies Allergy/AdvReac Type Severity Reaction Status Date / Time No Known Allergies Allergy NKA Verified 01/03/24 16:13 Home Meds Home Medications Medication Instructions Recorded Confirmed cholecalciferol (vitamin D3) 10 0 mcg PO DAILY ##0 10/26/19 09/28/24 mcg (400 unit) capsule (Vitamin D3) cyanocobalamin (vitamin B-12) 0 tab PO DAILY ##0 10/26/19 09/28/24 milk thistle 140 mg capsule 0 mg PO DAILY ##0 10/26/19 09/28/24 pyridoxine (vitamin B6) 25 mg 0 mg PO DAILY ##0 10/26/19 09/28/24 tablet (Vitamin B-6) Results & Data (ED) Vital Signs Vital Signs - 24 hr 09/28/24 14:10 09/28/24 15:42 09/28/24 16:13 Temperature 36.6 C Temperature Source Temporal Artery Scan Pulse Rate 97 H 95 H Pulse Rate [Apical] 83 Pulse Rate from SpO2 Sensor 92 H Respiratory Rate 16 22 18 Respiratory Effort / Characteristics Non-Labored Spontaneous Non-Labored Spontaneous Respiratory Depth Normal Normal Respiratory Pattern Regular Regular Blood Pressure 170/96 H 146/85 H Blood Pressure [Right Arm] 144/90 H Blood Pressure Mean 120 105 Blood Pressure Mean [Right Arm] 108 Blood Pressure Position [Right Arm] Sitting Pulse Oximetry 97 97 97 Oxygen Delivery Method Room Air Room Air Sepsis Recent Fever Within 48 Hours No Sepsis New/Unexplained Change in Mental Status No Sepsis Action Taken by Nursing No Action Required 09/28/24 16:27 09/28/24 16:33 09/28/24 16:38 Temperature Temperature Source Pulse Rate 86 72 78 Pulse Rate [Apical] Pulse Rate from SpO2 Sensor 77 Respiratory Rate 14 Respiratory Effort / Characteristics Respiratory Depth Respiratory Pattern Blood Pressure 167/106 H 167/106 H Blood Pressure [Right Arm] Blood Pressure Mean 126 Blood Pressure Mean [Right Arm] Blood Pressure Position [Right Arm] Pulse Oximetry 97 Oxygen Delivery Method Sepsis Recent Fever Within 48 Hours Sepsis New/Unexplained Change in Mental Status Sepsis Action Taken by Nursing Laboratory Data 09/28/24 14:24 09/28/24 14:24 Lab Results 09/28/24 09/28/24 Range/Units 14:24 16:07 WBC 6.64 (4.8-10.8) K/ul RBC 4.82 (4.70-6.10) M/uL Hgb 14.7 (14.0-18.0) g/dl Hct 42.7 (42.0-52.0) % MCV 88.6 (80.0-100.0) fL MCH 30.5 (25.0-34.0) pg MCHC 34.4 (32.0-36.0) g/dL RDW Std Deviation 40.5 (36.4-46.3) fL RDW Coeff of Linda 12.4 (11.5-14.5) % Plt Count 240 (130-400) K/uL MPV 8.5 L (9.4-12.4) fL Immature Gran % (Auto) 0.3 % Neut % (Auto) 62.0 % Lymph % (Auto) 26.7 % [place] % (Auto) 9.6 % Eos % (Auto) 0.8 % Baso % (Auto) 0.6 % Neut # (Auto) 4.12 (1.40-6.50) K/uL Lymph # (Auto) 1.77 (1.20-3.40) K/uL [place] # (Auto) 0.64 H (0.11-0.59) K/uL Eos # (Auto) 0.05 (0.00-0.50) K/uL Baso # (Auto) 0.04 (0.00-0.20) K/uL Immature Gran # (Auto) 0.02 (0.01-0.20) K/uL PT 10.5 (9.0-12.0) Seconds INR 1.0 (0.9-1.1) APTT 26 (21-31) Seconds PTT Ratio 1.0 Sodium 139 (136-145) mmol/L Potassium 4.0 (3.5-5.1) mmol/L Chloride 104 (98-107) mmol/L Carbon Dioxide 27 (21-32) mmol/L Anion Gap 8 (3-11) BUN 17 (6-23) mg/dl Creatinine 1.05 (0.6-1.4) mg/dl Est Cr Clr Drug Dosing 81.4 ml/min eGFR 83.31 BUN/Creatinine Ratio 16.2 (10-20) Glucose 104 H (70-99(Fasting)) mg/dl Calcium 9.5 (8.6-10.3) mg/dl Magnesium 2.2 (1.7-2.4) mg/dl Total Bilirubin 0.5 (0.2-1.0) mg/dl AST 53 H (13-39) U/L ALT 40 (7-52) U/L Alkaline Phosphatase 48 (34-104) U/L Troponin I High Sens 354.8 H* 321.4 H* (0-20) pg/ml Total Protein 7.5 (6.0-8.3) gm/dl Albumin 4.8 (3.4-5.0) gm/dl Globulin 2.7 (2.5-4.0) gm/dl Albumin/Globulin Ratio 1.8 (0.9-2) Administered Medications Atorvastatin Calcium (Atorvastatin 40 Mg Tab) 80 mg PO QAM [facility] Stop: 10/28/24 18:29 Last Admin: 09/28/24 18:48 Dose: 80 mg Documented By: TYLER Heparin Sodium/Dextrose (Heparin 45738 Unit/500 Ml D5w) 25,000 units in 500 mls @ 26 mls/hr IV .[id number] [facility]; Protocol Stop: 10/28/24 16:44 Last Titration: 09/28/24 19:13 Dose: 1,300 units/hr, 26 mls/hr Documented By: TYLER Co-signed By: BATOOL Admin: 09/28/24 16:48 Dose: 1,300 units/hr, 26 mls/hr Documented By: KARINA Co-signed By: TAYLOR Insulin Aspart (Insulin Aspart Per Unit Charge) 0 units SC [facility] Stop: 10/28/24 20:59 Last Admin: 09/28/24 20:42 Dose: Not Given Documented By: BATOOL Discontinued Medications Aspirin (Aspirin 81 Mg Chew) 324 mg PO NOW STA Stop: 09/28/24 15:48 Last Admin: 09/28/24 15:59 Dose: 324 mg Documented By: KARINA Heparin Sodium (Porcine) (Heparin Sod (Porcine) 1000 Unit/Ml) 6,000 units IV NOW ONE Stop: 09/28/24 16:36 Last Admin: 09/28/24 16:50 Dose: 6,000 units Documented By: KARINA Co-signed By: TAYLOR Heparin Sodium/Dextrose (Heparin Iv Adult Wt-Based Standard W/ Initial Bolus Protocol) 1 each IV NOW STA; Protocol Stop: 09/28/24 16:21 Last Admin: 09/28/24 16:56 Dose: Not Given Documented By: KARINA Metoprolol Tartrate (Metoprolol Tartrate 1 Mg/Ml Vial) 5 mg IV NOW STA Stop: 09/28/24 16:21 Last Admin: 09/28/24 16:38 Dose: 5 mg Documented By: KARINA Imaging Data Radiologist's Impression: Chest X-Ray 09/28/24 14:13 XR chest 1V not portable CLINICAL HISTORY: Chest pain, nonspecific COMPARISON STUDY: 08/29/2023 FINDINGS: Heart size and pulmonary vasculature are normal. No consolidation or pleural effusion. No pneumothorax. IMPRESSION: No acute findings. ACT 112: Negative or not required by law. Electronically signed by: Pablo Yen M.D. 09/28/2024 2:38 PM Discharge Plan Visit Data Chief Complaint: Chest Pain Stated Complaint: CHEST PAIN ED Provider: Saray Ventura Discharge Problem: NSTEMI (non-ST elevated myocardial infarction) Patient Disposition: Admitted As Inpatient Condition: Fair Discharge Instructions Interventions: ED Discharge Assessment Last Done: 09/28/24 17:45
[2024-09-28] MEDS ORDERED: MELATONIN 3 MG TAB PO PRN (18:08)
[2024-09-28] MEDS ORDERED: MAGNESIUM HYDROXIDE SUSP 30 ML UDC PO PRN (18:08)
[2024-09-28] MEDS ORDERED: ACETAMINOPHEN 325 MG TAB PO PRN (18:08)
[2024-09-28] MEDS ORDERED: ALUMINUM/MAGNESIUM SUSP 30 ML UDC PO PRN (18:08)
[2024-09-28] MEDS ORDERED: POLYETHYLENE (MIRALAX) 17 GM PACK PO PRN (18:08)
[2024-09-28] MEDS ORDERED: ONDANSETRON INJ 2 MG/ML 2 ML VIAL IV PRN (18:08)
[2024-09-28] MEDS: ATORVASTATIN 40 MG TAB PO SCH (18:48)
[2024-09-28] MEDS: INSULIN ASPART PER UNIT CHARGE SC SCH (20:42)
[2024-09-29] LABS: ANTI-Xa, UFH(UnfractionatedHep 0.81 IU/ml (0.3-0.7)
[2024-09-29 07:09] LABS: ANTI-Xa, UFH(UnfractionatedHep 0.53 IU/ml (0.3-0.7)
[2024-09-29 07:23] LABS: Chol HDL Ratio 3.7 (0-5)
[2024-09-29 07:33] LABS: Estimated Average Glucose 126 mg/dl
--- NOTE | 2024-09-29 07:58 | Hospitalist Progress Note ---
Date of Service September 29, 2024 Assessment & Plan (1) NSTEMI (non-ST elevated myocardial infarction): (2) New onset type 2 diabetes mellitus: (3) Hyperlipidemia: (4) HTN (hypertension): Plan Pro Constantino is a 54 y/o M with a past medical hx of HTN, HLD, pre-diabetes, and alcohol abuse arriving in the hospital due to sharp chest pain lasting 5-10 minutes associated with radiation of pain to L. jaw and L. arm numbness. These symptoms were replaced by a dull L. sided chest pain lasting til patient's ED visit around 2pm 09/29 Angina/NSTEMI - Risk factors: HTN, HLD, pre-diabetes, Male, age - Troponin peak: 354.8 - EKG: significant for some abnormal T wave inversions in lead 3, no evidence of STEMI - Echocardiogram pending; a1c: 6.0 - Cardiology consulted; appreciate recs - Patient currently on heparin drip, aspirin, metoprolol and statin therapy. Anti-Xa: 0.81, decreased heparin drip with pharmacy, repeat level 0.53 and within therapeutic range (0.3-0.7) - Consider long-term initiation of low-dose ACEi therapy - Consider catheterization vs medical management of symptoms Chronic problems: HTN: metoprolol, consider addition/replacement with ACEi HLD: Atorvastatin 80mg, consider decreasing at d/c as lipid panel wnl and A1c improved to pre-diabetes Pre-diabetes: Hold metformin DVT prophylaxis: heparin gtt Admission and Anticipated Discharge Date Admission Date: September 28, 2024 Supervising Physician Co-Signing Physician Notes I personally examined the patient and verified thomson points of history and exam, discussed case, and agree with decision making and plan documented by Dr. Bond. Evaluated patient post catheterization today with at bedside, reports only mild disease found. No return of chest pain. Remains on telemetry. Discussed importance of nutritional approach. A1c 6%, lipids normal range. Anticipate discharge tomorrow. Will follow-up at [facility]. Subjective Patient is seen this AM and denies chest pain, palpitations, SOB, fevers, and chills. Does endorse that yesterday he had sharp chest pain that radiated to his left jaw associated with L. arm numbness and slight SOB. These symptoms have resolved today and patient feels well without acute complaints. Patient is afebrile and hypodynamically stable. Physical Exam Physical Exam: General: patient resting comfortably, NAD, non-toxic in appearance, answers questions appropriately. Skin: warm, dry, intact HEENT: NC/AT, anicteric sclera, conjunctiva without injection, moist mucus membranes. Heart: +S1/S2, regular, no m/r/g Lungs: equal air entry bilaterally, no rales/rhonchi/wheezes Abd: +BS, soft, NT/ND Ext: warm, no clubbing/cyanosis or edema Neuro: nonfocal, speech intact, no facial droop, moving all extremities. Results & Data Results & Data Vital Signs (Past 12 Hours) Vital Signs Temp Pulse Pulse Pulse Resp BP Pulse Ox 09/29/24 07:20 36.5 C 60 17 129/80 95 09/29/24 03:47 36.5 C 58 L 18 120/74 97 09/28/24 23:38 36.6 C 60 18 120/76 97 09/28/24 21:43 73 09/28/24 20:19 36.7 C 66 18 144/92 H 96 O2 Del Method 09/29/24 07:20 Room Air 09/29/24 03:47 Room Air 09/28/24 23:38 Room Air 09/28/24 21:43 09/28/24 20:19 Room Air Resident Activity Tracking Resident Involvement: Resident Care Provided Care Provided: Adult Hospital Medicine
[2024-09-29] MEDS: ASPIRIN 81 MG ECTAB PO SCH (08:11)
[2024-09-29] MEDS ORDERED: CHOLECALCIFEROL PO SCH (09:00)
[2024-09-29] MEDS ORDERED: NON-FORMULARY MEDICATION (Cyanocobalamin (Vitamin B-12) Tablet,Chewable) PO SCH (09:00)
--- NOTE | 2024-09-29 11:55 | XCELERA ---
[id number]
--- NOTE | 2024-09-29 12:31 | Pre Anesthesia Assessment ---
Date of Service September 29, 2024 Pre Sedation Assessment Vital Signs Temp Pulse Pulse Pulse Resp BP BP 09/29/24 12:13 73 18 128/83 09/29/24 07:20 36.5 C 60 17 129/80 09/29/24 05:47 64 09/29/24 03:47 36.5 C 58 L 18 120/74 09/28/24 23:38 36.6 C 60 18 120/76 09/28/24 21:43 73 09/28/24 20:19 36.7 C 66 18 144/92 H 09/28/24 18:23 36.7 C 70 20 143/84 H 09/28/24 18:07 72 09/28/24 17:00 73 19 140/97 09/28/24 16:53 72 16 141/103 H 09/28/24 16:38 78 167/106 H 09/28/24 16:33 72 14 167/106 H 09/28/24 16:27 86 09/28/24 16:13 83 18 144/90 H 09/28/24 15:42 95 H 22 146/85 H 09/28/24 14:10 36.6 C 97 H 16 170/96 H Pulse Ox O2 Del Method 09/29/24 12:13 94 Room Air 09/29/24 07:20 95 Room Air 09/29/24 05:47 09/29/24 03:47 97 Room Air 09/28/24 23:38 97 Room Air 09/28/24 21:43 09/28/24 20:19 96 Room Air 09/28/24 18:23 95 Room Air 09/28/24 18:07 09/28/24 17:00 96 09/28/24 16:53 95 Room Air 09/28/24 16:38 09/28/24 16:33 97 09/28/24 16:27 09/28/24 16:13 97 Room Air 09/28/24 15:42 97 09/28/24 14:10 97 Room Air Cardiovascular RRR, no murmur, no edema Respiratory normal respiratory effort, lungs clear to auscultation Pre-Sedation Airway Assessment Smoking Status: Never smoker Hx Sleep Apnea: Yes Short, Thick Neck: No Thyromental Distance: > or= 3.5 Finger Breadths Oral Cavity: + Chipped Teeth Mallampati Class: II ASA: ASA3 NPO Status Date of Last Intake of Fluids: 09/29/24 Time of Last Intake of Fluids: 06:00 Date of Last Intake of Solid Food: 09/28/24 Time of Last Intake of Solid Foods: 19:20 Notes The planned sedation has been discussed with the patient. Informed Consent was obtained. I have identified the patient, determined the appropriateness of sedation and have assessed the patient immediately prior to the procedure. All medicine(s) and interventions are by my order.
[2024-09-29] MEDS: NITROGLYCERIN/D5W 100MCG/ML 20ML SYR ONE (12:40)
[2024-09-29] MEDS: niCARdipine 2,000 MCG/20 ML SYR ONE (12:40)
[2024-09-29] MEDS: IODIXANOL (VISIPAQUE) 320 MG/ML 100ML IV ONE (12:40)
[2024-09-29] MEDS: fentaNYL citrate PF 100 MCG/2 ML VIAL ONE (12:54)
[2024-09-29] MEDS: HEPARIN (PORCINE) 1000 UNIT/ML 10 ML (CATH LAB USE ONLY) ONE (12:54)
[2024-09-29] MEDS: OPTIRAY 350 ONE (12:54)
[2024-09-29] MEDS: MIDAZOLAM HCL 1 MG/ML 2ML VIAL ONE (12:55)
--- NOTE | 2024-09-29 13:03 | Post Anesthesia Assessment ---
Date of Service September 29, 2024 Post Sedation Assessment Vital Signs Temp Pulse Pulse Pulse Resp BP BP 09/29/24 12:13 73 18 128/83 09/29/24 07:20 36.5 C 60 17 129/80 09/29/24 05:47 64 09/29/24 03:47 36.5 C 58 L 18 120/74 09/28/24 23:38 36.6 C 60 18 120/76 09/28/24 21:43 73 09/28/24 20:19 36.7 C 66 18 144/92 H 09/28/24 18:23 36.7 C 70 20 143/84 H 09/28/24 18:07 72 09/28/24 17:00 73 19 140/97 09/28/24 16:53 72 16 141/103 H 09/28/24 16:38 78 167/106 H 09/28/24 16:33 72 14 167/106 H 09/28/24 16:27 86 09/28/24 16:13 83 18 144/90 H 09/28/24 15:42 95 H 22 146/85 H 09/28/24 14:10 36.6 C 97 H 16 170/96 H Pulse Ox O2 Del Method 09/29/24 12:13 94 Room Air 09/29/24 07:20 95 Room Air 09/29/24 05:47 09/29/24 03:47 97 Room Air 09/28/24 23:38 97 Room Air 09/28/24 21:43 09/28/24 20:19 96 Room Air 09/28/24 18:23 95 Room Air 09/28/24 18:07 09/28/24 17:00 96 09/28/24 16:53 95 Room Air 09/28/24 16:38 09/28/24 16:33 97 09/28/24 16:27 09/28/24 16:13 97 Room Air 09/28/24 15:42 97 09/28/24 14:10 97 Room Air Recovery Score Activity: Moves 4 extremities Respiration: Deep Breath/Cough Circulation: +/-20% PreAnes Value Consciousness: Fully Awake Oxygen Saturation: > 92% On Room Air Discharge Sedation Level of Care: Fast Track Phase II Post Sedation Plan On clinical assessment, the patient appears to have tolerated the sedation without complications. Patient is recovering as anticipated. Patient will continue to be monitored by nursing and may be discharged when sedation discharge criteria are met per below protocol. Upon Completions of procedure up to 15 minutes continue every 5 minute vital signs and the P.A.R. score; then discharge to a Phase I or Fast Track to Phase II per the following guidelines: * Discharge Patient to appropriate Phase II area if PAR is 8 or greater or return to pre- procedure baseline. The post - procedure orders will be as directed. * If PAR score is less than 8 or not return to pre-procedure baseline then patient will follow Phase I monitoring till PAR is reached for Phase II. The Phase I may be done in procedure room or may call to secure a Phase I area. * If naloxone or flumazenil are used for reversal, hold in Phase I for continued monitoring from when last reversal dose was given for a minimum of 60 minutes or longer pending the nurse and/or physician discretion of patient condition before discharge to Phase II. Please call the Sedation Physician to re-evaluate and complete post-note for discharge to Phase II area. Do NOT discharge from procedure sedation or Phase 1 until post- sedation evaluation note is complete by procedure /sedation MD Sedation Discharge Instructions to be given to the patient at discharge to home. [facility] [place] Procedure Codes (Charges) Indication for Procedure Indication for procedure: NSTEMI Sedation/Anesthesia Procedure 1: Sedation/Anesthesia: 15253 Mod Sedation by the same physician;Init15 Min Child Age 5 & Up (initial 15 min ,start 1245, end 1256)
--- NOTE | 2024-09-29 21:45 | Cardiology Consultation ---
Date of Consultation September 29, 2024 Assessment & Plan (1) NSTEMI (non-ST elevated myocardial infarction): Patient has minimal coronary artery disease. No appropriate targets for PCI. I believe the elevated troponin was secondary to hypertension and his LVH. (Type II non-ST elevation MD). He should remain on guideline directed medical therapy for secondary prevention including low-dose aspirin, high intensity statin therapy, beta-kassandra, and DAHIANA inhibitor/ARB given his diabetes. I have initiated losartan 25 mg daily. This will be more beneficial for him than the beta-kassandra at this point. (2) Hyperlipidemia: Patient is considered high risk. High intensity statin therapy is recommended. Atorvastatin 80 mg daily and reassess lipids after 3 months therapy. (3) HTN (hypertension): Initial blood pressure was fairly elevated. Current blood pressures are much better. We will continue to titrate blood pressure regimen as appropriate for guideline directed medical therapy. Beginning with losartan 25 mg daily and if his blood pressure/HR will allow then low-dose beta-kassandra tomorrow. History of Present Illness Reason for Consultation: Chest pain Elevated troponin Attending Physician: Loren Dickson DO History of Present Illness Pleasant 54-year-old gentleman with new diagnosis of diabetes, hypertension, and dyslipidemia. He presented after developing chest pain while ascending the stairs with radiation to his jaw and left arm. No dyspnea and no diaphoresis. Initially the pain was quite intense and made him concerned. It resolved/improved significantly after 5 to 10 minutes and then he had just mild residual pressure. Came to the emergency department where his blood pressure was noted to be elevated. EKG without ischemic changes. Troponin was modestly elevated and I was asked to see him. Echocardiogram was performed showing normal EF and no segmental wall motion abnormalities (see report for details). He still have some mild chest pressure and his troponin was over 300. Therefore, after discussion with the patient and his decision was made to proceed with cardiac catheterization plus or minus PCI as indicated. Patient underwent diagnostic coronary angiography via the radial artery approach. This revealed very mild LAD disease with the remainder of his coronaries appearing essentially normal. Patient tolerated the procedure well. He denied any prior chest pain episodes leading up to the day of admission. No significant dyspnea on exertion. He denied syncope, near syncope, orthopnea, PND, racing heartbeat, palpitations, or edema. He voices no other complaints or concerns. Allergies Allergy/AdvReac Type Severity Reaction Status Date / Time No Known Allergies Allergy NKA Verified 01/03/24 16:13 Home Medications Medication Instructions Recorded Confirmed Type cholecalciferol (vitamin D3) 10 0 mcg PO DAILY ##0 10/26/19 09/28/24 History mcg (400 unit) capsule (Vitamin D3) cyanocobalamin (vitamin B-12) 0 tab PO DAILY ##0 10/26/19 09/28/24 History milk thistle 140 mg capsule 0 mg PO DAILY ##0 10/26/19 09/28/24 History pyridoxine (vitamin B6) 25 mg 0 mg PO DAILY ##0 10/26/19 09/28/24 History tablet (Vitamin B-6) Patient History Medical History Acute metabolic encephalopathy Acute urinary retention Aseptic meningitis Fatty liver Hearing loss in left ear History of manic depressive disorder Surgical History History of placement of ear tubes History of eye surgery History of colonoscopy Family History Father Diabetes Brother Diabetes Sister No problems noted. Other No family history of adverse response to anesthesia Social History Smoking Status: Never smoker Tobacco Type: Smokeless Tobacco (Dip or Chew) Second Hand Exposure: No; Do You Dip or Chew Tobacco: Yes; Hx Alcohol Use: No Hx Substance Use: No Preferred Language: Gabonese Communication Ability: Effective Matcher Required: No Beliefs That Will Affect Care: None marital status: Current Living Situation: Spouse current occupational status: employed Other Information That Helps Us Care for You: No Feels Safe at Home: Yes Safety Concerns: Feels Safe At This Time Assistive Devices: Glasses Review of Systems Review of Systems: Negative except as per HPI Physical Exam Constitutional: WD/WN, vitals as above (Overweight, no acute distress) Eyes: Extraocular muscles intact. Sclera are anicteric. ENMT: [place] is pink moist and intact Neck: No JVD Respiratory: Clear to auscultation bilaterally. No wheezing, rhonchi, or rales. Good air movement. Cardiovascular: Regular rate and rhythm. S4 gallop. No rubs or murmurs appreciated. No edema. Musculoskeletal: no cyanosis or clubbing, extremities motor strength 5/5 Neurologic: Cognition is intact. Speech is fluent. Hearing is mildly diminished. No focal deficits. No tremor. Psychiatric: A+Ox3, euthymic affect Results & Data Vital Signs (Past 12 Hours) Vital Signs Temp Pulse Pulse Resp BP BP Pulse Ox 09/29/24 20:19 36.7 C 69 18 118/74 94 09/29/24 17:20 80 133/82 09/29/24 16:20 36.8 C 74 18 133/89 96 09/29/24 14:21 36.7 C 75 16 123/80 92 09/29/24 13:20 64 18 100/73 93 09/29/24 13:05 63 18 104/82 94 09/29/24 12:13 73 18 128/83 94 O2 Del Method 09/29/24 20:19 Room Air 09/29/24 17:20 09/29/24 16:20 Room Air 09/29/24 14:21 Room Air 09/29/24 13:20 Room Air 09/29/24 13:05 Room Air 09/29/24 12:13 Room Air PG Care Time/CCT Total # of Minutes Spent Total Time Spent with Patient: Total time spent is greater than 50% in coordination of care (as documented) at patient's floor/unit and/or counseling patient: Coding Level of Care Code 59563 IN/OBS CONSULT LVL 3,45M Diagnoses NSTEMI (non-ST elevated myocardial infarction) I21.4 Hyperlipidemia E78.5 HTN (hypertension) I10
[2024-09-30 06:16] LABS: Basophils # (auto) 0.07 K/uL (0.00-0.20); Basophils % (auto) 1.1 %; Eosinophils # (auto) 0.22 K/uL (0.00-0.50); Eosinophils % (auto) 3.4 %; Hematocrit (blood only) 45.7 % (42.0-52.0); Immature Granulocytes # (auto) 0.02 K/uL (0.01-0.20); Immature Granulocytes % (auto) 0.3 %; Lymphocytes # (auto) 1.83 K/uL (1.20-3.40); Lymphocytes % (auto) 28.6 %; Mean Corpuscular Hemoglobin 31.4 pg (25.0-34.0); Mean Corpuscular Volume 89.6 fL (80.0-100.0); Mean Platelet Volume 8.3 fL (9.4-12.4); Monocytes # (auto) 0.67 K/uL (0.11-0.59); Monocytes % (auto) 10.5 %; Neutrophils # (auto) 3.58 K/uL (1.40-6.50); Neutrophils % (auto) 56.1 %; Platelet Count 210 K/uL (130-400); RDW Coefficient of Variation 12.2 % (11.5-14.5); RDW Standard Deviation 40.4 fL (36.4-46.3); White Blood Count 6.39 K/ul (4.8-10.8)
[2024-09-30 06:36] LABS: BUN Creatinine Ratio 17.5 (10-20); Calcium 9.3 mg/dl (8.6-10.3); Creatinine Clr Calc Pharmacy 73.5 ml/min; Potassium 4.3 mmol/L (3.5-5.1)
[2024-09-30 08:17] VITALS: RESP 20; TEMP 97.9
[2024-09-30] MEDS: LOSARTAN POTASSIUM 25 MG TAB PO SCH (08:58)
[2024-09-30 10:07] VITALS: O2SAT 94
--- NOTE | 2024-09-30 11:25 | Discharge Summary ---
Date of Service September 30, 2024 Admission HPI Per Admitting Provider very pleasant 54-year-old male who woke up this morning and then had substernal chest pain radiating to his left armstarted whenever he was getting ready to leave the house. Lasted for 5-10 minutes and very intensely to where he thought about coming to the ER then, but after that the pain started to let up some. He notes it is still there now it is just not nearly as intense as what it was. He also notes a preceding fatigue over the last 1-2 months that he could not otherwise explain. He still currently has a degree of chest pressure, but it is extremely mild compared to previous. Admission Exam Per Admitting Provider General he is awake alert oriented pleasant no distress. HEENT normocephalic atraumatic mucous membranes moist. Lungs clear to auscultation bilaterally no rales rhonchi or wheezes good effort. Cardio is regular without rubs murmurs gallops. Abdomen soft nondistended nontender no masses or organomegaly no ep igastric tenderness to palpation. Extremities without sinus clubbing or edema no calf tenderness. Neuro shows cranial nerves II through XII are grossly intact gross motor and sensory intact. Principal Diagnosis NSTEMI/Atypical chest pain Discharge Exam General: patient resting comfortably, NAD, non-toxic in appearance, answers questions appropriately. Skin: warm, dry, intact HEENT: NC/AT, anicteric sclera, conjunctiva without injection, moist mucus membranes. Heart: +S1/S2, regular, no m/r/g Lungs: equal air entry bilaterally, no rales/rhonchi/wheezes Abd: +BS, soft, NT/ND Ext: warm, no clubbing/cyanosis or edema Neuro: nonfocal, speech intact, no facial droop, moving all extremities. Discharge Data Allergies Allergy/AdvReac Type Severity Reaction Status Date / Time No Known Allergies Allergy NKA Verified 01/03/24 16:13 Consultations 09/28/24 16:32 ED Decision to Admit Stat 09/28/24 16:41 Consult Cardiology Routine Procedures Performed Operation Date: 09/29/24 13:00 Actual Procedures s Cineradiography w/Routine Exam - Jules Kenny MD, PhD p Cath, Left with Cors and Vent - Jules Kenny MD, PhD Ordered Studies 09/29/24 12:28 CL Cath Imgs for PACS use only Routine Hospital Course (1) NSTEMI (non-ST elevated myocardial infarction): (2) New onset type 2 diabetes mellitus: (3) Hyperlipidemia: (4) HTN (hypertension): Shelton Constantino is a 54 y/o M with a past medical hx of HTN, HLD, pre-diabetes, and alcohol abuse arriving in the hospital due to sharp chest pain lasting 5-10 minutes associated with radiation of pain to L. jaw and L. arm numbness. These symptoms were replaced by a dull L. sided chest pain lasting til patient's ED visit around 2pm 09/29 Angina/NSTEMI - Risk factors: HTN, HLD, pre-diabetes, Male, age - Troponin peak: 354.8 - EKG: significant for some abnormal T wave inversions in lead 3, no evidence of STEMI - Echocardiogram pending; a1c: 6.0 - Cardiology consulted; appreciate recs - Patient currently on heparin drip, aspirin, metoprolol and statin therapy. Anti-Xa: 0.81, decreased heparin drip with pharmacy, repeat level 0.53 and w ithin therapeutic range (0.3-0.7) - Consider long-term initiation of low-dose ACEi therapy - Consider catheterization vs medical management of symptoms Chronic problems: HTN: metoprolol, consider addition/replacement with ACEi HLD: Atorvastatin 80mg, consider decreasing at d/c as lipid panel wnl and A1c improved to pre-diabetes Pre-diabetes: Hold metformin DVT prophylaxis: heparin gtt Total Time Total Time Spent Total Time Spent (In Minutes): See attending attestation Discharge Plan Discharge Items Patient Disposition: Home - Self-Care Reason For Visit: ANGINA, NSTEMI Discharge Diagnosis: Angina, NSTEMI Condition on Discharge: Fair Activity: Per Instructions section Non-emergency contact: Primary Care Provider Call non-emergency contact if: your symptoms worsen and your pain is not controlled Follow-up/Referrals: Abhijit Alexis DO [Primary Care Provider] - 10/16/24 1:00 pm (Primary Care hospital follow up scheduled on 10/16/24 at 1:00) Diet: Regular Addtl Attending Provider Instructions: You were admitted to the hospital for chest pain radiating to your L. jaw and with associated numbness of your L. arm. In the hospital your EKG showed some abnormal conduction in the T waves and a follow-up troponin revealed elevations consistent with myocardial or heart damage most likely due to ischemia or lack of blood flow and oxygen to your heart. Although your sharp chest pain resolved, you did still have a dull left sided chest ache and the findings were discussed with the cardiology team who agreed that a cardiac catheterization was necessary to rule out any areas of decreased blood flow in the heart. This catheterization was completed and showed very minimal coronary artery disease and there were no areas that required expansion or addition of a stent. It will be important to continue with medication management of this diagnosis to prevent another event. You will be required to take the same medications that you were taking while admitted in the hospital while at home. These medications will be Lipitor (Atorvastatin) 80mg daily, Aspirin 81mg daily, and Losartan 25mg daily. An addition of metoprolol 25mg daily would also be beneficial, but this medication was held while at the hospital due to lower heart rates. Please sampler pickup all medications at your local pharmacy, and the dosages and scheduling of doses will be discussed in bold below. A discharge summary will be sent to your primary care physician to ensure continuity of care. Please bring this discharge summary with you to your next office appointment so that your provider can review it at that time. Follow-up appointments: Make a follow-up appointment with your PCP within the next week. It is very important that you follow up with them shortly after discharge from the hospital. An appointment has been scheduled for you on Monday 10/[address] Angela Knox Keep all your follow-up appointments as already scheduled. If you cannot make an appointment, notify your provider. Medications: Your medication list has been reviewed and reconciled upon discharge to ensure accuracy and continuity of care. An updated list of all your medications is included with your hospital discharge paperwork. Please review this list closely, and make note of any changes. We sent a new medication called Atorvastatin (Lipitor) 80mg to your pharmacy. Please take this medication one tablet once a day We sent a new medication called Losartan 25mg to be taken once a day. Please take one tablet once a day. Please sampler pickup over the counter Aspirin, and take 81mg daily, one tablet once a day Please discuss starting Metoprolol succinate 25mg daily with your pcp, this medication was held in the hospital due to lower heart rates but may be useful to start at some point if necessary as it is cardioprotective. Take your medications as instructed; do not skip a dose of your medicines. Make sure all of your doctors know every medicine you are taking (including arnf-lwc-dlkrtwx medicines, vitamins, and supplements). Call your primary care provider before taking any new medicines (including rsqj-blk-gglhtet medicines, vitamins, and supplements), because some of these may interact with your current medications, or may make your symptoms worse. Tell your primary care provider if you cannot afford your medications. CONTACT YOUR PRIMARY CARE PROVIDER if you experience any of the following: Difficulty following your treatment plan, or difficulty taking medications CALL 911 OR GO TO THE EMERGENCY DEPARTMENT if you experience any of the following: Sudden, severe abdominal pain or nausea/vomiting Severe chest pain, or chest pain that radiates (moves) to your jaw or arm Sudden, severe shortness of breath or difficulty breathing Thank you for allowing us to participate in your care. Pending Studies at Discharge: No Stand-Alone Forms: [facility] Apps, Smoking Cessation Medications and DC Order Prescriptions: New losartan 25 mg tablet 25 mg PO DAILY Qty: 30 0RF atorvastatin 80 mg tablet 80 mg PO DAILY Qty: 30 0RF Rx Instructions: Please take one tablet daily. Continued pyridoxine (vitamin B6) [Vitamin B-6] 25 mg Tablet 0 mg PO DAILY Qty: 0 Rx Instructions: 09/27- per pt, he still has his vitamins but hasnt taking any in a month or two milk thistle 140 mg Capsule 0 mg PO DAILY Qty: 0 Rx Instructions: 09/27- per pt, he still has his vitamins but hasnt taking any in a month or two cholecalciferol (vitamin D3) [Vitamin D3] 10 mcg (400 unit) Capsule 0 mcg PO DAILY Qty: 0 Rx Instructions: 09/27- per pt, he still has his vitamins but hasnt taking any in a month or two cyanocobalamin (vitamin B-12) Tablet,Chewable 0 tab PO DAILY Qty: 0 Rx Instructions: 09/27- per pt, he still has his vitamins but hasnt taking any in a month or two Discharge Orders: Discharge Order (Routine); Ordered 09/30/24 Ordered By: Jose Malave/Other Patient Handouts: A1C Admission Data Admit Date/Time: 09/28/24 16:41 Attending Provider: Loren Dickson Admit Provider: Jerry Brandon Primary Care Provider: Abhijit Alexis Other Providers: Octaviano Tucker; Jerry Brandon Other Interventions: Discharge Summary Assessment (RN) Last Done: 09/30/24 12:45 Supervising Physician Co-Signing Physician Notes I personally examined the patient and verified thomson points of history and exam, discussed case, and agree with decision making and plan documented by Dr. Bond. 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 No events telemetry. Reviewed guideline directed medical therapy for secondary prevention, patient is on 81 mg of aspirin, he remains on high intensity statin, he was also started on losartan 25 mg daily. Patient will follow-up with cardiology to consider beta-kassandra therapy. Discussed importance of nutritional approach. A1c 6%, lipids normal range. Encouraged engagement of regular aerobic exercise. Will follow-up at [facility]. Total attending time 38 minutes Resident Activity Tracking Resident Involvement: Resident Care Provided Care Provided: Adult Hospital Medicine
[2024-09-30 12:46] VITALS: BP 133/82; PULSE 64
--- NOTE | 2024-09-30 15:28 | Electrocardiogram Report ---
Test Reason : Blood Pressure : */* mmHG Vent. Rate : 83 BPM Atrial Rate : 83 BPM P-R Int : 148 ms QRS Dur : 92 ms QT Int : 364 ms P-R-T Axes : 35 -10 23 degrees QTcB Int : 427 ms Normal sinus rhythm Normal ECG When compared with ECG of 07-Feb-2023 09:01, No significant change was found Confirmed by Octaviano Tucker ([id number]) on 09/30/2024 3:28:38 PM Referred By: Confirmed By: Octaviano Tucker
--- NOTE | 2024-09-30 18:19 | Cardiac Catheterization ---
[facility] Data: Gluing Pressman Cardiac Status Clinical evaluation leading to the procedure CAD Presenation: Non STEMI Anginal Classification: CCS IV Heart Failure: No Cardiogenic Shock within 24 Hours: No Cardiac Arrest within 24 Hours: No Imaging Studies Past 6 Months: Yes Stress Studies Past 6 Months: No Coronary Anatomy Dominant: Right Left Main (% Stenosis): Normal LAD (% Stenosis): Mid (Less than 30%) D1 (% Stenosis): Normal D2 (% Stenosis): Normal Circumflex (% Stenosis): Normal OM1 (% Stenosis): Normal OM2 (% Stenosis): Normal OM3 (% Stenosis): Normal L PL1 (% Stenosis): Normal RCA (% Stenosis): Normal R PDA (% Stenosis): Normal R PL1 (% Stenosis): Normal Diagnostic Physicians Name: Jules Kenny MD, PhD Closure Device Percutaneous Entry Location: Radial Closure Device: Radial Band Recommendations: Medical Therapy and/or Counseling Cardiac Cath Procedure Full Procedure Date September 29, 2024 Pre-Procedure Diagnosis Pre-Procedure Diagnosis: Non STEMI AUC Score AUC Score: 07 Post-Procedure Diagnosis Post-Procedure Diagnosis: Normal Coronary Arteries Procedure(s) Performed Procedure(s) Performed: Coronary Angiography Manufacturing Test Engineer Jules Kenny MD, PhD Estimated Blood Loss Estimated Blood Loss: 5 cc Medication(s) Medication(s): Fentanyl, Heparin, Lidocaine 1%, Nicardipine, Nitroglycerin and Versed Summary of Findings Brief description: Patient was brought to the cardiac catheterization suite where he was shaved and prepped in a sterile fashion. Sedated using IV Versed and fentanyl. Soft tissues of the right wrist were anesthetized using 2 mL of 1% Xylocaine. The right radial artery was accessed with a modified Seldinger technique and a 6 Tunisian radial artery glide sheath was placed. Patient was provided anticoagulation with IV heparin and antispasmodics including nicardipine and nitroglycerin. All catheters were advanced and exchanged over a 0.035 J-tip wire. Left coronary angiography in orthogonal views with a 5 [place] 4 diagnostic catheter. Right coronary angiography in orthogonal views with a 5 [place] 4 diagnostic catheter. Diagnostic catheters were removed. Radial artery sheath was removed. Hemostasis was obtained using the TR band. Kenrick burton was hemodynamically stable and asymptomatic. He was returned to the recovery area. This ended the case. Coronary angiography findings: ASM-azjjn-sobsdvx vessel bifurcating into LAD and circumflex. No disease. YNQ-lhljy-wdxumew and transapical. Gives a large branching high arising first diagonal and a smaller second diagonal. The mid segment has less than 30% stenosis. The remainder of the LAD and its branches have no disease. MMv-wpuni-kqxdtrz and nondominant. Travels in the AV groove where he gives a high arising medium caliber OM1 followed by 2 tiny obtuse marginal branches, an atrial branch which is larger, and then terminates in a large branching posterior lateral. No angiographically evident disease in the circumflex or its branches. RCA-this is large caliber and dominant. Bifurcates distally into a large PDA and a medium caliber branching posterior lateral. There is no angiographically evident disease in the RCA or its branches. Summary: 1. Minimal nonocclusive coronary disease as described. 2. Patient will be placed on appropriate therapy for primary prevention of coronary disease. Hemodynamics Rest Ao:: 116/72 mmHg Final Ao: 94/74 mm number LV: Not performed Recommendations Recommendations: Medical Therapy and/or Counseling Radiation Exposure (mGy) 527 mGy, fluoroscopy time 2.2 minutes. Contrast (mls) 50 cc Anesthesia 2 mg Versed, 50 mcg fentanyl IV. Start time 1245, end time 1256 Procedural Complication(s) None I attest to the content of the Intraoperative Record and any orders documented therein. Any exceptions are noted below. [facility] Card Cath Procedure Codes Cardiac Catheterization Procedure 1: Cardiovascular Cath Procedures: 20565 Coronaries Moderate Sedation Procedure 1: Sedation/Anesthesia: 90130 Mod Sedation by the same physician;Init15 Min Child Age 5 & Up (Initial 15 minutes, start time 1245, end time 1256) PG Care Time/CCT Total # of Minutes Spent Total Time Spent with Patient: Total time spent is greater than 50% in coordination of care (as documented) at patient's floor/unit and/or counseling patient:
== END 2024-09-30 13:08 | disposition home or self-care (01) | DRG 282 ==
LOC: ED 14:05 → 2E 16:41 → SUATTDRO 16:41 → 2E 17:45